=== PATIENT | male | born 1935 | race Caucasian/White ===

== ENCOUNTER → 2021-09-18 | Outpatient (CLI) | payer MEDICARE ==
--- NOTE | 2021-09-18 16:22 | P.SLEEP ---
History of Present Illness H&P Date: 09/18/21 Chief Complaint: Poor sleep quality This is a very pleasant 85-year-old male patient was referred to me for difficulties with his sleep quality. The patient has been having this issue for the past several years. He has an extensive number of medical problems and comorbidities. He has degenerative arthritis which has affected his mobility and movement. At the same time, the patient is known to have CAD, diabetes mellitus, hypertension and hyperlipidemia. He has history of prostate cancer treated with radiation therapy and the patient has symptoms of BPH for now. The patient reports that he tries to go to bed at around 9:30 PM and he wakes up around 4 AM in the morning. His sleep is fragmented. He cannot get himself comfortable as the patient has pain/arthritic pain. The patient has to get up at least 3-4 times in the middle of the night to urinate. He cuts down his fluid intake at around 6 PM. He takes a dose of Lasix in the morning. No nighttime diuretic use. He has occasional soft snoring. He prefers to sleep on his side. He was having dry mouth in the morning which has improved. Denies waking up choking or gasping for air. He prefers to sleep with his head of the bed elevated at around 20-30. No sleepwalking. No sleep talking. No no cturnal chest pain. No nocturnal heartburn. The patient is taking a PPI. No anxiety. No depression. During the day, the patient does not take any long naps. He chest to get himself quite busy. No episodes of falling asleep while driving his car. No previous personal or family history of obstructive sleep apnea. Review of Systems Constitutional: Reports fatigue, Reports weakness, Reports weight gain Eyes: denies as per HPI, denies blurred vision, denies bulging eye, denies decreased vision, denies diplopia, denies discharge, denies dry eye, denies irritation, denies itching, denies pain, denies photophobia, denies loss of peripheral vision, denies loss of vision, denies tunnel vision/blind spots Ears: deny: decreased hearing, ear discharge, earache, tinnitus Ears, nose, mouth and throat: Reports as per HPI Breasts: absent: as per HPI, gynecomastia Cardiovascular: Reports decreased exercise tolerance, Reports dyspnea on exertion Respiratory: Reports snoring Gastrointestinal: Reports as per HPI Genitourinary: Reports as per HPI Musculoskeletal: Reports gait dysfunction, Reports hot joints, Reports limitation of motion, Reports muscle weakness Musculoskeletal: bilateral: ankle swelling, absent: ankle pain, ankle stiffness Integumentary: Reports as per HPI Neurological: Reports as per HPI, Reports weakness Psychiatric: Reports as per HPI Endocrine: Reports as per HPI, Reports fatigue Hematologic/Lymphatic: Reports as per HPI Allergic/Immunologic: Reports as per HPI Past Medical History Past Medical History: Coronary Artery Disease (CAD), Cancer (Prostate cancer, osteoarthritis), Diabetes Mellitus, Hyperlipidemia, Hypertension, Osteoarthritis (OA) Past Surgical History: Heart Catheterization With Stent, Prostate Surgery (Seed implantation for prostate cancer) Past Psychological History: No Psychological Hx Reported Smoking Status: Former smoker Past Alcohol Use History: None Reported Past Drug Use History: None Reported Medications and Allergies Home Medications and Allergies Comment(s): Coreg 25 mg twice a day, the Nipride 2 mg 3 times a day, lisinopril 40 mg by mouth daily, metformin 1000 mg twice a day, omeprazole 20 mg by mouth daily, Lasix 20 mg by mouth daily, lovastatin 10 mg by mouth daily, Flomax 0.4 mg by mouth daily, aspirin 81 mg by mouth daily, potassium supplements, vitamin D3, multivitamins, and your 30 mg by mouth daily, Plavix 75 mg by mouth daily. Physical Exam Vitals: BP is 173/71, pulse is 73, respirations 21, temperature 96.4, BMI 34.4, [place] score is at 3, saturations 94% on room air oxygen. The patient appeared well nourished and normally developed. Vital signs as documented. Mallampati class III Head exam is unremarkable. No scleral icterus or corneal arcus noted. Neck is without jugular venous distension, thyromegaly, or carotid bruits. Carotid upstrokes are brisk bilaterally. Lungs are clear to auscultation and percussion. Lung sounds are diminished specially in the mid and lower lung ovalles and the patient some thoracic kyphosis. Cardiac exam reveals the PMI to be normally sized and situated. Rhythm is regular. First and second heart sounds normal. No murmurs, rubs or gallops. Abdominal exam reveals normal bowel sounds, no masses, no organomegaly and no aortic enlargement. Extremities are nonedematous and both femoral and pedal pulses are normal. Degenerative arthritic changes in his hands and his knees bilaterally of the skin revealed no evidence of significant rashes, suspicious appearing nevi or other concerning lesions.Neurologically, the patient is awake and alert and the patient does not have any focal neurological deficit. Cranial nerves are essentially intact. Assessment and Plan Plan: Impaired sleep quality without major hypersomnia and sleepiness. The patient has sleep fragmentation related to his comorbidities most significant of which is degenerative arthritis and nocturia related to prostate cancer and previous prostate surgery and symptoms of prostatism. At the same time, there may be a component of CHF as the patient is reporting some orthopnea. I highly doubt the possibility of an underlying sleep breathing disorder. I think this patient's impaired sleep quality is related to his large number of comorbid conditions as stated. Coronary artery disease Hypertension Hyperlipidemia Prostate cancer, symptoms of prostatism Degenerative arthritis with chronic arthritic pain Diabetes mellitus type 2 Obesity Plan Had a lengthy discussion with the patient in presence of his regarding his sleep quality, and the comorbidities that he is going through affecting his sleep quality in general. I would suggest alternating Tylenol and nondistended further anti-inflammatory medications for him more effective pain control. He has been taking Aleve PM which has helped him with his ability to generate to maintain sleep and I think that's okay to continue as long as the patient is not expressing any side effects from the antihistamine. No delirium. No urinary retention. I do not see any immediate need to do a sleep study. We are going to work on these various factors and the patient will contact me back should there be any worsening in his sleep quality in general. Sleep Note - Sleep Note Sleep Note: Temperature: Pulse Rate: Respiratory Rate: Blood Pressure: SpO2: Height: Weight: BMI: Neck Circumference:
== END ==
LOC: SLEEP 15:18
PROVIDERS: ATTEND Internal Medicine Critical Care Medicine
DX: G47.10 Hypersomnia, unspecified (principal); R35.1 Nocturia; M19.90 Unspecified osteoarthritis, unspecified site; C61 Malignant neoplasm of prostate; I25.10 Atherosclerotic heart disease of native coronary artery without angina pectoris; I10 Essential (primary) hypertension; E78.5 Hyperlipidemia, unspecified; N40.0 Benign prostatic hyperplasia without lower urinary tract symptoms; E11.9 Type 2 diabetes mellitus without complications; E66.9 Obesity, unspecified; Z87.891 Personal history of nicotine dependence; Z68.34 Body mass index [BMI] 34.0-34.9, adult; Z79.84 Long term (current) use of oral hypoglycemic drugs; Z79.82 Long term (current) use of aspirin
CPT/HCPCS: 99211

== ENCOUNTER 2023-01-23 19:01 | Emergency (ER) | payer MEDICARE ==
--- NOTE | 2023-01-23 20:32 | ED ---
Fall HPI - General Chief Complaint: Fall Stated Complaint: FALL Time Seen by Provider: 01/23/23 19:26 Source: patient, family, EMS Mode of arrival: EMS - History of Present Illness Initial Comments: 87-year-old male presenting with chief complaint of fall. Patient was walking to the car with his just after dinner, his was walking a few steps out of him when she heard him fall hitting his face on the pavement. She states they did not speak immediately after the fall but there did not seem to be a clear loss of consciousness. No blood thinners. He was placed in a c-collar by EMS. Patient did have one beer at dinner. No nausea, vomiting, dizziness, vision or hearing changes, numbness, tingling, weakness. Patient has an abrasion to the right forehead and swelling and abrasion to the lower inner lip. - Related Data Allergies Allergy/AdvReac Type Severity Reaction Status Date / Time No Known Allergies Allergy Verified 01/23/23 19:19 Review of Systems ROS Statement: Those systems with pertinent positive or pertinent negative responses have been documented in the HPI. ROS Other: All systems not noted in ROS Statement are negative. Past Medical History Past Medical History: Coronary Artery Disease (CAD), Cancer, Diabetes Mellitus, Hyperlipidemia, Hypertension, Osteoarthritis (OA) Past Surgical History: Heart Catheterization With Stent, Prostate Surgery Past Psychological History: No Psychological Hx Reported Smoking Status: Former smoker Past Alcohol Use History: None Reported Past Drug Use History: None Reported General Exam Limitations: no limitations General appearance: alert, in no apparent distress Head exam: Present: atraumatic, normocephalic, normal inspection Eye exam: Present: normal appearance, PERRL, EOMI. Absent: scleral icterus, co njunctival injection, periorbital swelling Neck exam: Present: normal inspection Respiratory exam: Present: normal lung sounds bilaterally. Absent: respiratory distress, wheezes, rales, rhonchi, stridor Cardiovascular Exam: Present: regular rate, normal rhythm, normal heart sounds. Absent: systolic murmur, diastolic murmur, rubs, gallop, clicks Neurological exam: Present: alert, oriented X3 Expanded Patient oriented to: Present: person, place, time Speech: Present: fluid speech Cranial nerves: EOM's Intact: Normal Motor strength exam: RUE: 5, LUE: 5, RLE: 5, LLE: 5 Eye Response: (4) open spontaneously Motor Response: (6) obeys commands Verbal Response: (5) oriented Elana Total: 15 Psychiatric exam: Present: normal affect, normal mood Skin exam: Present: warm, dry, normal color, abrasion (Forehead and lip). Absent: rash Course Vital Signs 01/23/23 19:11 Temperature 98.1 F Pulse Rate 73 Respiratory 20 Rate Blood Pressure 180/79 O2 Sat by Pulse 93 L Oximetry Medical Decision Making - Medical Decision Making Was pt. sent in by a medical professional or institution (, [facility], [facility], urgent care, hospital, or fci...) When possible be specific @ -No Did you speak to anyone other than the patient for history (EMS, parent, family, police, friend...)? What history was obtained from this source @ -No Did you review nursing and triage notes (agree or disagree)? Why? @ -I reviewed and agree with nursing and triage notes Were old charts reviewed (outside hosp., previous admission, EMS record, old EKG, old radiological studies, urgent care reports/EKG's, fci records)? Report findings @ -No old charts were reviewed Differential Diagnosis (chest pain, altered mental status, abdominal pain women, abdominal pain men, vaginal bleeding, weakness, fever, dyspnea, syncope, headache, dizziness, GI bleed, back pain, seizure, CVA, palpatations, mental health, musculoskeletal)? @ -Differential includes intracranial hemorrhage, cervical spine fracture, concussion, this is not an all inclusive last EKG interpreted by me (3pts min.). @ -As above X-rays interpreted by me (1pt min.). @ -None done CT interpreted by me (1pt min.). @ -There is no acute fracture or dislocation evident in the cervical spine. No acute intracranial hemorrhage, mass effect, or midline shift is seen. U/S interpreted by me (1pt. min.). @ -None done What testing was considered but not performed or refused? (CT, X-rays, U/S, labs)? Why? @ -None What meds were considered but not given or refused? Why? @ -None Did you discuss the management of the patient with other professionals (professionals i.e. , [facility], [facility], lab, RT, psych nurse, social media marketing analyst, funeral prearrangement counselor, teacher, civilian jail officer, bilingual patient support caseworker)? Give summary @ -No Was smoking cessation discussed for >3mins.? @ -No Was critical care preformed (if so, how long)? @ -No Were there social determinants of health that impacted care today? How? (Homelessness, low income, unemployed, alcoholism, drug addiction, transportation, low edu. Level, literacy, decrease access to med. care, snf, rehab)? @ -No Was there de-escalation of care discussed even if they declined (Discuss DNR or withdrawal of care, Hospice)? DNR status @ -No What co-morbidities impacted this encounter? (DM, HTN, Smoking, COPD, CAD, Cancer, CVA, ARF, Chemo, Hep., AIDS, mental health diagnosis, sleep apnea, morbid obesity)? @ -None Was patient admitted / discharged? Hospital course, mention meds given and route, prescriptions, significant lab abnormalities, going to OR and other pertinent info. @ -87-year-old male presenting with chief complaint of head injury after fall from standing today. No loss of consciousness or blood thinners. Physical exam is conducted, no focal neurological deficits. GCS 15. Patient was placed in a c-collar by EMS. Negative CT of the brain and cervical spine. Patient and are educated on today's findings and management at home. Educated on wound care for the abrasions to the face and lip. Follow-up with PCP. Report back to ER with any new or worsening symptoms. Discussed return parameters and answered all questions. Patient conveyed verbal understanding and agreed to the plan. I discussed this case in detail with my attending Dr. Overton Undiagnosed new problem with uncertain prognosis? @ -No Drug Therapy requiring intensive monitoring for toxicity (Heparin, Nitro, Insulin, Cardizem)? @ -No Were any procedures done? @ -No Diagnosis/symptom? @ -head injury Acute, or Chronic, or Acute on Chronic? @ -Acute Uncomplicated (without systemic symptoms) or Complicated (systemic symptoms)? @ -Uncomplicated Side effects of treatment? @ -No Exacerbation, Progression, or Severe Exacerbation? @ -No Poses a threat to life or bodily function? How? (Chest pain, [place], [place], pneumonia, PE, COPD, DKA, ARF, appy, cholecystitis, CVA, Diverticulitis, Homicidal, Suicidal, threat to staff... and all critical care pts) @ -No Disposition Clinical Impression: Head injury Disposition: HOME SELF-CARE Condition: Good Instructions (If sedation given, give patient instructions): Head Injury (ED) Additional Instructions: Follow-up with PCP. Report back to ER with any new or worsening symptoms. Keep the wound clean and covered. Is patient prescribed a controlled substance at d/c from ED?: No Referrals: Haris Marroquin MD [Primary Care Provider] - 1-2 days Time of Disposition: 21:07
--- NOTE | 2023-01-23 20:46 | CT ---
EXAMINATION TYPE: CT brain cspine wo con DATE OF EXAM: 01/23/2023 COMPARISON: NONE HISTORY: Fall, trauma to mouth and nose. CT DLP: 1513.1 mGycm. Automated Exposure Control for Dose Reduction was Utilized. TECHNIQUE: CT scan of the head and cervical spine are performed without contrast. FINDINGS: There is no acute intracranial hemorrhage, mass effect, or midline shift identified. The v entricles and sulci are within normal limits in size. The globes are intact. The paranasal sinuses, m iddle ear cavities, and mastoid sinus air cells are clear. Cervical spine is visualized in its entirety from C1 through upper thoracic levels and demonstrates s atisfactory alignment without evidence of acute fracture or dislocation. Moderately advanced cervical spondylosis changes seen at all levels. Prevertebral soft tissue appears within normal limits. The C 1-C2 articulation is unremarkable. IMPRESSION: 1. There is no acute fracture or dislocation evident in the cervical spine. 2. No acute intracranial hemorrhage, mass effect, or midline shift is seen.
[2023-01-23] MEDS ORDERED: BACITRACIN OINT 1 EACH PACKET TOPICAL ONE (21:07)
[2023-01-23 21:51] VITALS: BP 138/64; PULSE 71; RESP 18; TEMP 97.9
== END 2023-01-23 21:52 | disposition home or self-care (01) ==
LOC: EC 19:01
DX: S00.81XA Abrasion of other part of head, initial encounter (principal); S00.511A Abrasion of lip, initial encounter; E11.9 Type 2 diabetes mellitus without complications; I25.10 Atherosclerotic heart disease of native coronary artery without angina pectoris; I10 Essential (primary) hypertension; Z87.891 Personal history of nicotine dependence; Z95.5 Presence of coronary angioplasty implant and graft; W18.30XA Fall on same level, unspecified, initial encounter; Y93.01 Activity, walking, marching and hiking
CPT/HCPCS: 70450; 72125; 99284

== ENCOUNTER 2023-07-01 12:11 | Inpatient (IN) | payer MEDICARE ==
--- NOTE | 2023-07-01 12:36 | ED ---
General Adult HPI - General Chief complaint: Weakness Stated complaint: Dehydration,Weakness,Failure to thrive Time Seen by Provider: 07/01/23 12:14 Source: patient, EMS Mode of arrival: EMS Limitations: no limitations - History of Present Illness Initial comments: Dictation was produced using [employer] dictation software. please excuse any grammatical, word or spelling errors. Chief Complaint: 87-year-old male presents to the emergency department for w orsening debility History of Present Illness: Patient is 87-year-old male. History present illness obtained from . He lives at home with his . Since February of last year he started to have worsening function. He was admitted at [facility] last year for bleeding and diverticulitis. Since then he has been slowly becoming worse. Today he was so weak that he was not able to support his own weight. He contacted primary care doctor and states that he should come to the hospital be admitted. does not feel safe with him at home. 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 Episode was witnessed by . States that he did not hurt himself. Patient denies any pain complaints. Denies any fever or constitutional symptoms. Denies any black or bloody stools. The ROS documented in this emergency department record has been reviewed and confirmed by me. Those systems with pertinent positive or negative responses have been documented in the HPI. All other systems are other negative and/or noncontributory. - Related Data Home Medications Medication Instructions Recorded Confirmed Ascorbic Acid [Vitamin C] 500 mg PO DAILY@1200 07/01/23 07/01/23 Aspirin 81 mg PO DAILY 07/01/23 07/01/23 Cholecalciferol (Vitamin D3) 75 mcg PO DAILY@1200 07/01/23 07/01/23 [Vitamin D3 (3000 Iu)] Furosemide [Lasix] 20 mg PO DAILY 07/01/23 07/01/23 Glimepiride [Amaryl] 2 mg PO AC-BRKFST 07/01/23 07/01/23 Levothyroxine Sodium [Synthroid] 25 mcg PO DAILY 07/01/23 07/01/23 Nitroglycerin Sl Tabs [Nitrostat] 0.4 mg SUBLINGUAL Q5M PRN 07/01/23 07/01/23 Rosuvastatin [Crestor] 10 mg PO HS 07/01/23 07/01/23 Tamsulosin HCl [Flomax] 0.4 mg PO DAILY@1200 07/01/23 07/01/23 amLODIPine [Norvasc] 5 mg PO DAILY 07/01/23 07/01/23 carvediloL [Coreg] 12.5 mg PO BID 07/01/23 07/01/23 lisinopriL [Zestril] 20 mg PO HS 07/01/23 07/01/23 metFORMIN HCL 500 mg PO BID 07/01/23 07/01/23 Allergies Allergy/AdvReac Type Severity Reaction Status Date / Time No Known Allergies Allergy Verified 07/01/23 13:42 Review of Systems ROS Statement: Those systems with pertinent positive or pertinent negative responses have been documented in the HPI. ROS Other: All systems not noted in ROS Statement are negative. Past Medical History Past Medical History: Coronary Artery Disease (CAD), Cancer, Diabetes Mellitus, Hyperlipidemia, Hypertension, Osteoarthritis (OA) Past Surgical History: Heart Catheterization With Stent, Prostate Surgery Past Psychological History: No Psychological Hx Reported Smoking Status: Former smoker Past Alcohol Use History: None Reported Past Drug Use History: None Reported General Exam - General Exam Comments Initial Comments: PHYSICAL EXAM: General Impression: Alert and oriented x3, not in acute distress HEENT: Normocephalic atraumatic, extra-ocular movements intact, pupils equal and reactive to light bilaterally, mucous membranes moist. Cardiovascular: Heart regular rate and rhythm Chest: Able to complete full sentences, no retractions, no tachypnea Abdomen: abdomen soft, non-tender, non-distended, no organomegaly Musculoskeletal: Pulses present and equal in all extremities, no peripheral edema Motor: no focal deficits noted Neurological: CN II-XII grossly intact, no focal motor or sensory deficits noted Skin: Intact with no visualized rashes Psych: Normal affect and mood Limitations: no limitations Course Vital Signs 07/01/23 07/01/23 12:16 14:06 Temperature 97.4 F L Pulse Rate 65 68 Respiratory 18 20 Rate Blood Pressure 167/77 170/84 O2 Sat by Pulse 97 95 Oximetry EKG Findings - EKG Comments: EKG Findings:: My EKG interpretation: Ventricular rate 62, sinus rhythm, OK interval 192, QRS 103, QTc 404.. No OK prolongation, no QTC prolongation, no ST or T-wave changes noted. Overall, this EKG is unremarkable Medical Decision Making - Medical Decision Making Was pt. sent in by a medical professional or institution (DANNY Mendez, [employer], urgent care, hospital, or detention...) When possible be specific @ -No Did you speak to anyone other than the patient for history (EMS, parent, family, police, friend...)? What history was obtained from this source @ -See above Did you review nursing and triage notes (agree or disagree)? Why? @ -I reviewed and agree with nursing and triage notes Were old charts reviewed (outside hosp., previous admission, EMS record, old EKG, old radiological studies, urgent care reports/EKG's, detention records)? Report findings @ -No old charts were reviewed Differential Diagnosis (chest pain, altered mental status, abdominal pain women, abdominal pain men, vaginal bleeding, musculoskeletal, weakness, fever, dyspnea, syncope, headache, dizziness, GI bleed, back pain, seizure, CVA, palpatations, mental health)? @ -Differential Weakness: Hypoglycemia, shock, sepsis, hyponatremia, anemia, infection, FL, ETOH, adverse medicine reaction, overdose, stroke, this is not meant to be an all-inclusive list. EKG interpreted by me (3pts min.). @ -None done X-rays interpreted by me (1pt min.). @ -None done CT interpreted by me (1pt min.). @ -None done U/S interpreted by me (1pt. min.). @ -None done What testing was considered but not performed or refused? (CT, X-rays, U/S, labs)? Why? @ -None What meds were considered but not given or refused? Why? @ -None Did you discuss the management of the patient with other professionals (professionals i.e. DANNY Mendez, [employer], lab, RT, psych nurse, medical social worker, marine biologist, teacher, special technical operations officer, child welfare caseworker)? Give summary @ -Case discussed with hospitalist for admission Was smoking cessation discussed for >3mins.? @ -No Was critical care preformed (if so, how long)? @ -No Were there social determinants of health that impacted care today? How? (Homelessness, low income, unemployed, alcoholism, drug addiction, transport ation, low edu. Level, literacy, decrease access to med. care, prison, rehab)? @ -No Was there de-escalation of care discussed even if they declined (Discuss DNR or withdrawal of care, Hospice)? DNR status @ -No What co-morbidities impacted this encounter? (DM, HTN, Smoking, COPD, CAD, Cancer, CVA, ARF, Chemo, Hep., AIDS, mental health diagnosis, sleep apnea, morbid obesity)? @ -None Was patient admitted / discharged? Hospital course, mention meds given and route, prescriptions, significant lab abnormalities, going to OR and other pertinent info. @ -87-year-old male brought to the emergency department per instruction by primary care doctor for admission for worsening weakness. Vital signs upon arrival are within acceptable limits. Physical examination is benign. Patient is in no acute distress. He has no focal findings on his physical exam. Laboratory evaluation is unremarkable. Patient be admitted for grave disability. Undiagnosed new problem with uncertain prognosis? @ -No Drug Therapy requiring intensive monitoring for toxicity (Heparin, Nitro, Insulin, Cardizem)? @ -No Were any procedures done? @ -No Diagnosis/symptom? Acute, or Chronic, or Acute on Chronic? Uncomplicated (without systemic symptoms) or Complicated (systemic symptoms)? @ -Gravely disabled Side effects of treatment? @ -No Exacerbation, Progression, or Severe Exacerbation? @ -No Poses a threat to life or bodily function? How? (Chest pain, USA, FL, pneumonia, PE, COPD, DKA, ARF, appy, cholecystitis, CVA, Diverticulitis, Homicidal, Suicidal, threat to staff... and all critical care pts) @ -No - Lab Data Result diagrams: 07/01/23 12:55 07/01/23 12:55 Lab Results 07/01/23 07/01/23 Range/Units 12:55 12:55 WBC 6.6 (3.8-10.6) k/uL RBC 4.14 L (4.30-5.90) m/uL Hgb 11.7 L (13.0-17.5) gm/dL Hct 36.3 L (39.0-53.0) % MCV 87.7 (80.0-100.0) fL MCH 28.3 (25.0-35.0) pg MCHC 32.2 (31.0-37.0) g/dL RDW 18.4 H (11.5-15.5) % Plt Count 190 (150-450) k/uL MPV 8.4 Neutrophils % 69 % Lymphocytes % 19 % Monocytes % 7 % Eosinophils % 3 % Basophils % 1 % Neutrophils # 4.5 (1.3-7.7) k/uL Lymphocytes # 1.2 (1.0-4.8) k/uL Monocytes # 0.4 (0-1.0) k/uL Eosinophils # 0.2 (0-0.7) k/uL Basophils # 0.1 (0-0.2) k/uL Anisocytosis Slight Sodium 136 L (137-145) mmol/L Potassium 3.7 (3.5-5.1) mmol/L Chloride 106 (98-107) mmol/L Carbon Dioxide 23 (22-30) mmol/L Anion Gap 7 mmol/L BUN 19 (9-20) mg/dL Creatinine 0.68 (0.66-1.25) mg/dL Est GFR (CKD-EPI)AfAm >90 (>60 ml/min/1.73 sqM) Est GFR (CKD-EPI)NonAf 87 (>60 ml/min/1.73 sqM) Glucose 88 (74-99) mg/dL Calcium 8.3 L (8.4-10.2) mg/dL Magnesium 1.7 (1.6-2.3) mg/dL Disposition Clinical Impression: Gravely disabled Disposition: ADMITTED IP TO THIS HOSP Condition: Fair Referrals: Haris Marroquin MD [Primary Care Provider] - 1-2 days Decision Time: 15:11
[2023-07-01 13:02] LABS: Anisocytosis Slight; Basophils # (A) 0.1 k/uL (0-0.2); Basophils % (A) 1 %; Eosinophils # (A) 0.2 k/uL (0-0.7); Eosinophils % (A) 3 %; HCT 36.3 % (39.0-53.0); HGB 11.7 gm/dL (13.0-17.5); Lymphocytes # (A) 1.2 k/uL (1.0-4.8); Lymphocytes % (A) 19 %; MCH 28.3 pg (25.0-35.0); MCHC 32.2 g/dL (31.0-37.0); MCV 87.7 fL (80.0-100.0); Mean Platelet Volume 8.4; Monocytes # (A) 0.4 k/uL (0-1.0); Monocytes % (A) 7 %; Neutrophils # (A) 4.5 k/uL (1.3-7.7); Neutrophils % (A) 69 %; Platelet Count 190 k/uL (150-450); RBC 4.14 m/uL (4.30-5.90); RDW 18.4 % (11.5-15.5); WBC 6.6 k/uL (3.8-10.6)
[2023-07-01 13:13] LABS: African American GFR (CKD) >90 (>60 ml/min/1.73 sqM); Anion Gap 7 mmol/L; Blood Urea Nitrogen 19 mg/dL (9-20); Calcium 8.3 mg/dL (8.4-10.2); Carbon Dioxide 23 mmol/L (22-30); Chloride 106 mmol/L (98-107); Glucose 88 mg/dL (74-99); Magnesium 1.7 mg/dL (1.6-2.3); Non-African American GFR(CKD) 87 (>60 ml/min/1.73 sqM); Potassium 3.7 mmol/L (3.5-5.1); Sodium 136 mmol/L (137-145)
[2023-07-01] MEDS ORDERED: NALOXONE 0.4 MG/ML 1 ML VIAL IV PRN (15:02)
[2023-07-01] MEDS ORDERED: NITROGLYCERIN SL TABS 0.4 MG TAB SUBLINGUAL PRN (15:06)
[2023-07-01] MEDS: carvediloL 12.5 MG TAB PO SCH (17:45)
[2023-07-01] MEDS: metFORMIN 500 MG TAB PO SCH (17:45)
[2023-07-01] MEDS ORDERED: DEXTROSE 50% SYRINGE 50 ML IVP PRN ×2 (18:14)
[2023-07-01] MEDS: ACETAMINOPHEN TAB 325 MG TAB PO PRN (18:27)
[2023-07-01 20:59] LABS: Glucose,Whole Blood 107 mg/dL (70-110)
[2023-07-01] MEDS: INSULIN ASPART (NovoLOG) 100 UNIT/ML VIAL SQ SCH (21:10)
[2023-07-01] MEDS: ATORVASTATIN 20 MG TAB PO SCH (21:18)
[2023-07-01] MEDS: lisinopriL 20 MG TAB PO SCH (21:18)
[2023-07-02 07:34] LABS: Glucose,Whole Blood 112 mg/dL (70-110)
[2023-07-02] MEDS: GLIMEPIRIDE 2 MG TAB PO SCH (09:17)
[2023-07-02] MEDS: PANTOPRAZOLE 40 MG/10 ML VIAL IVP SCH (09:18)
[2023-07-02] MEDS: CHOLECALCIFEROL 25 MCG (1000 IU) TABLET PO SCH (09:18)
[2023-07-02] MEDS: ASPIRIN 81 MG PO SCH (09:18)
[2023-07-02] MEDS: MAGNESIUM SULFATE-D5W PMX 1 GM in DEXTROSE/WATER 1 100ML.BAG IVPB ONE ×2 (09:18→12:22)
[2023-07-02] MEDS: ASCORBIC ACID 500 MG TAB PO SCH (09:18)
[2023-07-02] MEDS: LEVOTHYROXINE 25 MCG TAB PO SCH (09:18)
[2023-07-02] MEDS: amLODIPine 5 MG TAB PO SCH (09:18)
[2023-07-02 11:28] LABS: Glucose,Whole Blood 366 mg/dL (70-110)
[2023-07-02] MEDS: TAMSULOSIN 0.4 MG CAP.ER.24H PO SCH (12:04)
[2023-07-02] MEDS: POTASSIUM CHLORIDE ER 20 MEQ TAB.ER PO SCH (12:04)
[2023-07-02] MEDS: FUROSEMIDE 20 MG TAB PO SCH (12:05)
--- NOTE | 2023-07-02 12:08 | P.HPIM ---
History of Present Illness H&P Date: 07/02/23 Chief Complaint: increased weakness, debility This is a pleasant 87-year-old gentleman with past medical history significant for CAD, diabetes mellitus, hypertension, hyperlipidemia, osteoarthritis, permanent pacemaker, prostate surgery, former nicotine dependence, gait dysf unction, uses a walker, and multiple other medical issues presented to the ER with complaints of progressive weakness. at bedside states that since this past February patient started having worsening function, difficulty getting out of bed and supporting his own weight. She also states patient was admitted to [facility] last year for bleeding and diverticulitis. Apparently yesterday patient had an episode of going to the bathroom began to feel extremely weak and attempted to lower himself to the ground-witnessed by his . Denies syncope, denies head trauma, denies trauma. Denies rectal bleeding/dark or black stools, denies pain. Denies recent illness. Denies nausea vomiting or diarrhea. Denies abdominal pain. Blood sugars controlled. Denies weight loss. denies lightheadedness dizziness or focal deficits. reports patient stopped taking his Lasix a couple days ago and she notices levothyroxine medication was missing off the list he gave. Denies chills, coldness or fatigue. ProBNP 571 .denies chest pain palpitations or shortness of breath. Denies cough or c ongestion. currently requiring 2 L nasal cannula to maintain O2 sats in the 90s. Procalcitonin 0.05 hypertensive. Magnesium 1.7, supplemented. Review of Systems ROS Statement: Those systems with pertinent positive or pertinent negative responses have been documented in the HPI. ROS Other: All systems not noted in ROS Statement are negative. Past Medical History Past Medical History: Coronary Artery Disease (CAD), Cancer, Diabetes Mellitus, Hyperlipidemia, Hypertension, Osteoarthritis (OA) History of Any Multi-Drug Resistant Organisms: None Reported Past Surgical History: Heart Catheterization With Stent, Hernia Repair, Pacemaker, Prostate Surgery Past Anesthesia/Blood Transfusion Reactions: No Reported Reaction Date of Last Stent Placement:: 2021 Type of Cardiac Device: Loop Device Placement Date:: 02/2024 Past Psychological History: No Psychological Hx Reported Smoking Status: Former smoker Past Alcohol Use History: None Reported Past Drug Use History: None Reported Medications and Allergies Home Medications Medication Instructions Recorded Confirmed Type Ascorbic Acid [Vitamin C] 500 mg PO DAILY@1200 07/01/23 07/01/23 History Aspirin 81 mg PO DAILY 07/01/23 07/01/23 History Cholecalciferol (Vitamin D3) 75 mcg PO DAILY@1200 07/01/23 07/01/23 History [Vitamin D3 (3000 Iu)] Furosemide [Lasix] 20 mg PO DAILY 07/01/23 07/01/23 History Glimepiride [Amaryl] 2 mg PO AC-BRKFST 07/01/23 07/01/23 History Levothyroxine Sodium [Synthroid] 25 mcg PO DAILY 07/01/23 07/01/23 History Nitroglycerin Sl Tabs [Nitrostat] 0.4 mg SUBLINGUAL Q5M PRN 07/01/23 07/01/23 History Rosuvastatin [Crestor] 10 mg PO HS 07/01/23 07/01/23 History Tamsulosin HCl [Flomax] 0.4 mg PO DAILY@1200 07/01/23 07/01/23 History amLODIPine [Norvasc] 5 mg PO DAILY 07/01/23 07/01/23 History carvediloL [Coreg] 12.5 mg PO BID 07/01/23 07/01/23 History lisinopriL [Zestril] 20 mg PO HS 07/01/23 07/01/23 History metFORMIN HCL 500 mg PO BID 07/01/23 07/01/23 History Allergies Allergy/AdvReac Type Severity Reaction Status Date / Time No Known Allergies Allergy Verified 07/01/23 13:42 Physical Exam Vitals: Vital Signs Temp Pulse Pulse Resp BP BP Pulse Ox 07/02/23 07:39 98.1 F 62 18 171/87 97 07/02/23 06:35 98.7 F 60 15 159/79 07/02/23 04:54 97 07/02/23 04:47 98.5 F 65 24 157/93 91 L 07/02/23 02:00 61 18 146/73 96 07/02/23 00:00 63 18 150/79 95 07/01/23 21:36 62 20 156/84 93 L 07/01/23 21:13 68 22 147/79 96 07/01/23 17:43 98.1 F 76 20 171/79 93 L 07/01/23 14:06 68 20 170/84 95 07/01/23 12:16 97.4 F L 65 18 167/77 97 Intake and Output 07/01/23 07/02/23 07/02/23 22:59 06:59 14:59 Output Total 275 Balance -275 Output: Urine 275 Other: # Voids 2 Weight 87.997 kg PHYSICAL EXAM: VITAL SIGNS: [As above] GENERAL: Pleasant, alert and oriented x 3, sitting up in bed, no conversational dyspnea, no acute distress. HEENT: Normocephalic, atraumatic, conjunctivae normal. eyes normal. MMM. NECK: Supple, no JVD. No thyroid enlargement. No LNs CARDIOVASCULAR: S1, S2 regular. No murmur RESPIRATION: Unlabored, equal air entry breath sounds diminished in the bases. No rhonchi or crackles. No bronchial breathing. ABDOMEN: Soft, nontender . No guarding. no masses palpable. No ascites, No hepatosplenomegaly.Bowel sounds heard. LEGS: No edema. no swelling PSYCHIATRY: Alert and oriented X3, mood and affect normal. NERVOUS SYSTEM: Cranial N 2-12 grossly normal. Moves all 4 limbs. Motor strength strong and equal with exception of left lower extremity 4-4.5 out of 5. No focal deficits. Strength and sensation grossly intact.. Skin: Warm and dry, no rash Results CBC & Chem 7: 07/01/23 12:55 07/01/23 12:55 Labs: Abnormal Lab Results - Last 24 Hours (Table) 07/01/23 07/01/23 07/01/23 Range/Units 12:55 12:55 12:55 RBC 4.14 L (4.30-5.90) m/uL Hgb 11.7 L (13.0-17.5) gm/dL Hct 36.3 L (39.0-53.0) % RDW 18.4 H (11.5-15.5) % Sodium 136 L (137-145) mmol/L POC Glucose (mg/dL) (70-110) mg/dL Calcium 8.3 L (8.4-10.2) mg/dL NT-Pro-B Natriuret Pep 571 H (0-450) pg/mL 07/02/23 Range/Units 07:33 RBC (4.30-5.90) m/uL Hgb (13.0-17.5) gm/dL Hct (39.0-53.0) % RDW (11.5-15.5) % Sodium (137-145) mmol/L POC Glucose (mg/dL) 112 H (70-110) mg/dL Calcium (8.4-10.2) mg/dL NT-Pro-B Natriuret Pep (0-450) pg/mL Thrombosis Risk Factor Assmnt - Choose All That Apply Any of the Below Risk Factors Present?: Yes Each Factor Represents 1 point: Obesity (BMI >25) Other Risk Factors: Yes Each Risk Factor Represents 2 Points: Patient confined to bed Each Risk Factor Represents 3 Points: Age 75 years or older Thrombosis Risk Factor Assessment Total Risk Factor Score: 6 Thrombosis Risk Factor Assessment Level: High Risk Assessment and Plan Assessment: Near syncope, reported increasing weakness over the last 3-4 months, greatest noted in left lower extremity. Acute hypoxic respiratory failure, requiring 2 L nasal cannula. Hypertension Osteoarthritis Gait dysfunction, uses a walker Medical debility Chronic CHF, systolic dysfunction CAD PPM Diabetes mellitus, hemoglobin A1c pending History of prostate surgery Former nicotine dependence Hypokalemia Hypomagnesemia, supplemented Obesity, BMI 30 Plan: Continue on current medication resume ,monitoring and symptomatic tr eatment. Hypertensive, repeat blood pressure ordered. hypoxia, chest x-ray ordered. neurology consult initiated. TSH/free T4 ordered. Case management/PT/OT consulted. Potential subacute rehab at discharge.PPI ordered for GI prophylaxis. The impression and plan of care has been dictated as directed. : I performed a history and examination of this patient, discussed the same with the dictator. I agree with the dictator's note ,documented as a scribe. Any additional findings or plans will be noted.
[2023-07-02] MEDS: ACETAMINOPHEN IV (For NPO) 1,000 MG in EMPTY BAG 1 BAG IVPB STA (12:22)
--- NOTE | 2023-07-02 13:06 | XR ---
EXAMINATION TYPE: XR chest 1V portable DATE OF EXAM: 07/02/2023 12:35 PM CLINICAL INDICATION:Male, 87 years old with history of Hypoxia; COMPARISON: None TECHNIQUE: XR chest 1V portable Frontal view of the chest. FINDINGS: Lungs/Pleura: There is no evidence of pleural effusion, focal consolidation, or pneumothorax. Pulmonary vascularity: Unremarkable. Heart/mediastinum: Cardiomediastinal silhouette is unremarkable. Musculoskeletal: No acute osseous pathology. IMPRESSION: No acute cardiopulmonary disease/process.
[2023-07-02 16:15] LABS: Glucose,Whole Blood 47 mg/dL (70-110)
[2023-07-02 16:34] LABS: Glucose,Whole Blood 57 mg/dL (70-110)
[2023-07-02 16:47] LABS: Glucose,Whole Blood 68 mg/dL (70-110)
[2023-07-02 20:50] LABS: Glucose,Whole Blood 209 mg/dL (70-110)
[2023-07-03 06:02] LABS: Glucose,Whole Blood 118 mg/dL (70-110)
[2023-07-03] MEDS ORDERED: PANTOPRAZOLE 40 MG TABLET PO SCH (07:30)
[2023-07-03] MEDS: PANTOPRAZOLE 40 MG TABLET PO SCH (08:58)
[2023-07-03 10:00] LABS: African American GFR (CKD) >90 (>60 ml/min/1.73 sqM); Anion Gap 4 mmol/L; Blood Urea Nitrogen 17 mg/dL (9-20); Calcium 8.5 mg/dL (8.4-10.2); Carbon Dioxide 28 mmol/L (22-30); Chloride 103 mmol/L (98-107); Glucose 207 mg/dL (74-99); Non-African American GFR(CKD) 85 (>60 ml/min/1.73 sqM); Potassium 4.4 mmol/L (3.5-5.1); Sodium 135 mmol/L (137-145)
[2023-07-03 11:23] LABS: Glucose,Whole Blood 165 mg/dL (70-110)
--- NOTE | 2023-07-03 14:50 | P.PN ---
Subjective Progress Note Date: 07/03/23 H&P Date: 07/02/23 Chief Complaint: increased weakness, debility This is a pleasant 87-year-old gentleman with past medical history significant for CAD, diabetes mellitus, hypertension, hyperlipidemia, osteoarthritis, permanent pacemaker, prostate surgery, former nicotine dependence, gait dysfunction, uses a walker, and multiple other medical issues presented to the ER with complaints of progressive weakness. at bedside states that since this past February patient started having worsening function, difficulty getting out of bed and supporting his own weight. She also states patient was admitted to [facility] last year for bleeding and diverticulitis. Apparently yesterday patient had an episode of going to the bathroom began to feel ex tremely weak and attempted to lower himself to the ground-witnessed by his . Denies syncope, denies head trauma, denies trauma. Denies rectal bleeding/dark or black stools, denies pain. Denies recent illness. Denies nausea vomiting or diarrhea. Denies abdominal pain. Blood sugars controlled. Denies weight loss. denies lightheadedness dizziness or focal deficits. reports patient st opped taking his Lasix a couple days ago and she notices levothyroxine medication was missing off the list he gave. Denies chills, coldness or fatigue. ProBNP 571 .denies chest pain palpitations or shortness of breath. Denies cough or congestion. currently requiring 2 L nasal cannula to maintain O2 sats in the 90s. Procalcitonin 0.05 hypertensive. Magnesium 1.7, supplemented. 07/03/2023 reports he did not sleep well denies chest pain, palpitations or shortness of breath. Maintaining O2 sats in the 90s on room air. Chest x-ray reported nonacute. TSH 4.04, hemoglobin A1c 6.6. Blood sugars ranging from 1 teens up to low 200s. afebrile, procalcitonin normal, 0.05. Reports dizziness upon standing. Orthostatic vital signs ordered. Neurology consult in place, recommendations pending. Evaluated by PT, recommending subacute rehab at discharge. Objective - Vital Signs Vital signs: Vital Signs Temp 98.1 F 07/03/23 07:38 Pulse 72 07/03/23 08:00 Resp 15 07/03/23 08:00 BP 157/82 07/03/23 07:38 Pulse Ox 94 L 07/03/23 07:38 FiO2 Intake & Output 07/02/23 07/03/23 07/03/23 18:59 06:59 18:59 Other: Voiding Method Urinal Urinal Urinal # Voids 6 5 - Exam PHYSICAL EXAM: VITAL SIGNS: [As above] GENERAL:alert and oriented x 3,laying in bed, tired appearing, NAD HEENT: Normocephalic, atraumatic, conjunctivae normal. eyes normal. MMM. NECK: Supple, no JVD. CARDIOVASCULAR: S1, S2 regular. No murmur RESPIRATION: Unlabored, equal air entry, CTA, breath sounds diminished in the bases. ABDOMEN: Soft, nondistended, nontender . No guarding.+BS. LEGS: Trace edema, compression stockings on. NERVOUS SYSTEM: Cranial N 2-12 grossly normal. Moves all 4 limbs. No focal deficits. Strength and sensation grossly intact.. Skin: Warm and dry, no rash - Labs CBC & Chem 7: 07/01/23 12:55 07/03/23 08:59 Labs: Abnormal Lab Results - Last 24 Hours (Table) 07/02/23 07/02/23 07/02/23 Range/Units 09:22 16:13 16:28 Sodium (137-145) mmol/L Glucose (74-99) mg/dL POC Glucose (mg/dL) 47 L 57 L (70-110) mg/dL Hemoglobin A1c 6.6 H (<=6.0) % 07/02/23 07/02/23 07/03/23 Range/Units 16:42 20:49 06:00 Sodium (137-145) mmol/L Glucose (74-99) mg/dL POC Glucose (mg/dL) 68 L 209 H 118 H (70-110) mg/dL Hemoglobin A1c (<=6.0) % 07/03/23 07/03/23 Range/Units 08:59 11:21 Sodium 135 L (137-145) mmol/L Glucose 207 H (74-99) mg/dL POC Glucose (mg/dL) 165 H (70-110) mg/dL Hemoglobin A1c (<=6.0) % Assessment and Plan Assessment: Near syncope, reported increasing weakness over the last 3-4 months, greatest noted in left lower extremity. Acute hypoxic respiratory failure, resolved Hypertension Osteoarthritis Gait dysfunction, uses a walker Medical debility Chronic CHF, systolic dysfunction CAD PPM Diabetes mellitus, hemoglobin A1c pending History of prostate surgery Former nicotine dependence Hypokalemia Hypomagnesemia, supplemented Obesity, BMI 30 Plan: Continue on current medication resume ,monitoring and symptomatic treatmen t. Orthostatic blood pressures ordered. Neurology consult in place, recommendations pending. case management/PT/OT consulted. Discharge planning in progress for subacute rehab., Pending orthostatic vital signs, evaluation, recommendations and DC clearance as per neurology. The impression and plan of care has been dictated as directed. : I performed a history and examination of this patient, discussed the same with the dictator. I agree with the dictator's note ,documented as a scribe. Any additional findings or plans will be noted.
[2023-07-03 16:14] LABS: Basophils # (A) 0.07 X 10*3/uL (0.00-0.10); Eosinophils # (A) 0.23 X 10*3/uL (0.04-0.35); Eosinophils % (A) 3.2 %; HCT 38.2 % (39.6-50.0); Lymphocytes # (A) 1.21 X 10*3/uL (0.90-5.00); MCH 27.7 pg (27.0-32.0); MCHC 31.4 g/dL (32.0-37.0); MCV 88.2 FL (80.0-97.0); Mean Platelet Volume 11.2 FL (9.5-12.2); Monocytes # (A) 0.63 X 10*3/uL (0.20-1.00); Monocytes % (A) 8.8 %; NRBC Per 100 WBC 0 X 10*3/uL (0.00-0.01); Neutrophils # (A) 4.96 X 10*3/uL (1.80-7.70); Neutrophils % (A) 69.6 %; Platelet Count 194 X 10*3/uL (140-440); RBC 4.33 X 10*6/uL (4.40-5.60); RDW 18.6 % (11.5-14.5); WBC 7.13 X 10*3/uL (4.50-10.00)
[2023-07-03 16:47] LABS: Glucose,Whole Blood 150 mg/dL (70-110)
[2023-07-03] MEDS: INSULIN DETEMIR (LEVEMIR) 100 UNIT/ML SYR SQ SCH (17:45)
[2023-07-03 20:35] LABS: Glucose,Whole Blood 163 mg/dL (70-110)
[2023-07-04 01:21] LABS: Glucose,Whole Blood 59 mg/dL (70-110)
[2023-07-04 02:00] LABS: Glucose,Whole Blood 83 mg/dL (70-110)
[2023-07-04 03:17] LABS: Glucose,Whole Blood 135 mg/dL (70-110)
[2023-07-04 05:44] LABS: Glucose,Whole Blood 201 mg/dL (70-110)
[2023-07-04] MEDS ORDERED: INSULIN DETEMIR (LEVEMIR) 100 UNIT/ML SYR SQ SCH (07:00)
--- NOTE | 2023-07-04 09:06 | P.CNNES ---
History of Present Illness Consult date: 07/03/23 Requesting physician: Windy Yun Reason for Consult: near syncope,increased weakness, greatest noted LLE History of Present Illness: Patient is a 87-year-old right-handed male came to the hospital by ambulance 2 days ago on 07/01/2023 at 12:11 PM for generalized weakness. Patient's was present, who provided with a history as well. Patient has been having dizzy spells off and on for "couple years". Patient describes dizziness as lightheadedness, no vertigo. Also has been having generalized weakness. Stacy cason suffered from a fall in January 2023 when he fell face forward flat on the cement, did not try to break the fall. In late March 2023, he was leaving his office when he fell on the ground, "no calling for help, no protection" as per his . Patient states the dizzy spells are occurring about once or twice a month, lasting for about 1 hour. It is coming slightly more often. He does not know any trigger. Patient's denies any stroke symptoms like slurred speech, facial droop or focal weakness or problem with the vision. Since the last fall, patient's has noticed that he does not pick his left foot as well, and sometimes drags the left leg. She is noticing that sometimes he is looking for words in the last couple months. No slurring otherwise. Patient has a cousin, who is his rn intern as well, who implanted a loop recorder about 2 months ago and recently he had undergone loop recorder interrogation which did not reveal any arrhythmia. Patient did have episodes of dizziness after loop recorder was implanted. Patient is very poor historian, not very clear about his symptoms and very vague about reporting his symptoms therefore difficult to assess overall. On asking if he gets dizzy when bending down, states "sometimes". Does not become dizzy on rolling over in the bed. Patient's reports that when he gets out of bed fast, feels dizzy. In mid February 2023, patient had a ruptured diverticulitis and he stayed in [facility] for about 4 to 5 days. He required blood transfusion, subsequently has required iron infusion. He then went to rehab. As per EMS flowsheet, they were called for general global weakness, dehydration and overall failure to thrive. Patient was alert and orient x 4, GCS of 15 speaking in complete sentences. mentioned that patient has experienced numerous falls within the past year, increasing within the past 3 months. Patient also had 5 iron infusions in the past month. Patient has increasing general global weakness, difficulty with ambulating to the point where he is unable to meet his daily needs. Patient also showing signs of dehydration with positive skin turgor. Patient denied any chest pain or abdominal pain or difficulty breathing. Patient's blood glucose was 111 mg/dL. Other vital stable. Patient was given 500 mL bolus of normal saline. Blood pressure 133/54 pulse rate 68 respirations 16 saturation 98%. Blood test shows normal WBC hemoglobin 11.7 platelets 190. Sodium 136 potassium 3.7 renal functions are normal. Hemoglobin A1c 6.6, TSH normal 4.04. Patient's EKG and chest x-ray are normal. MRI of the cervical spine without contrast on 04/29/2022 revealed moderate to advanced multilevel spondylotic changes with reversal of normal cervical lordosis and degenerative grade 1 spondylolisthesis at C3-4, C5-6, C6-7 and nearly grade 2 at C3-4. Extensive patient motion degrading assessment for any discrete cord signal abnormality. At least moderate spinal canal stenosis at C3-4. At least mild spinal canal stenosis at C4-5 and C5-6, and C6-7. Very well moderate to severe neuroforaminal stenosis. Patient's mentions that after this MRI, he spoke to his rn intern, who recommended no surgery. Patient has not seen a neurosurgeon for it. Patient has history of diabetes for 15 years. Patient has smoked 1-1/2 pack/day for 20 years, quit at age 51. Denies any alcohol use, occasionally drinks a glass of wine. Patient's mentions that he has a walker which she used to use for long distance walking outside since last 6 months. However since his last fall in end of March 2023, he has been using his walker inside his home as well. Review of Systems Constitutional: Denies chills, Denies fever Eyes: denies blurred vision, denies diplopia, denies pain, denies loss of vision Ears: bilateral: decreased hearing (Age related), deny: ear discharge, earache, tinnitus Ears, nose, mouth and throat: Denies headache, Denies sore throat, Denies vertigo Cardiovascular: Reports lightheadedness, Denies chest pain, Denies shortness of breath, Denies syncope Respiratory: Denies cough, Denies excessive sputum Gastrointestinal: Denies abdominal pain, Denies diarrhea, Denies nausea, Denies vomiting Genitourinary: Reports incontinence (Uses briefs in he last 4-5 months), Reports urinary frequency (urgency) Musculoskeletal: Reports low back pain (Only when tires), Reports neck pain, Denies myalgias Integumentary: Denies pruritus, Denies rash Neurological: Reports as per HPI Psychiatric: Reports depression, Denies anxiety Hematologic/Lymphatic: Reports easy bleeding, Reports easy bruising Past Medical History Past Medical History: Coronary Artery Disease (CAD), Cancer, Diabetes Mellitus, Hyperlipidemia, Hypertension, Osteoarthritis (OA) History of Any Multi-Drug Resistant Organisms: None Reported Past Surgical History: Heart Catheterization With Stent, Hernia Repair, Pacemaker, Prostate Surgery Past Anesthesia/Blood Transfusion Reactions: No Reported Reaction Date of Last Stent Placement:: 2021 Type of Cardiac Device: Loop Device Placement Date:: 02/2024 Past Psychological History: No Psychological Hx Reported Smoking Status: Former smoker Past Alcohol Use History: None Reported Past Drug Use History: None Reported Medications and Allergies Home Medications Medication Instructions Recorded Confirmed Type Ascorbic Acid [Vitamin C] 500 mg PO DAILY@1200 07/01/23 07/01/23 History Aspirin 81 mg PO DAILY 07/01/23 07/01/23 History Cholecalciferol (Vitamin D3) 75 mcg PO DAILY@1200 07/01/23 07/01/23 History [Vitamin D3 (3000 Iu)] Furosemide [Lasix] 20 mg PO DAILY 07/01/23 07/01/23 History Glimepiride [Amaryl] 2 mg PO AC-BRKFST 07/01/23 07/01/23 History Levothyroxine Sodium [Synthroid] 25 mcg PO DAILY 07/01/23 07/01/23 History Nitroglycerin Sl Tabs [Nitrostat] 0.4 mg SUBLINGUAL Q5M PRN 07/01/23 07/01/23 History Rosuvastatin [Crestor] 10 mg PO HS 07/01/23 07/01/23 History Tamsulosin HCl [Flomax] 0.4 mg PO DAILY@1200 07/01/23 07/01/23 History amLODIPine [Norvasc] 5 mg PO DAILY 07/01/23 07/01/23 History carvediloL [Coreg] 12.5 mg PO BID 07/01/23 07/01/23 History lisinopriL [Zestril] 20 mg PO HS 07/01/23 07/01/23 History metFORMIN HCL 500 mg PO BID 07/01/23 07/01/23 History Allergies Allergy/AdvReac Type Severity Reaction Status Date / Time No Known Allergies Allergy Verified 07/01/23 13:42 Physical Examination - Vital Signs Vital Signs: Vital Signs Temp Pulse Resp BP Pulse Ox 07/03/23 08:00 72 15 07/03/23 07:38 98.1 F 72 15 157/82 94 L 07/03/23 01:07 98.0 F 62 16 159/75 95 07/02/23 20:11 97.4 F L 62 16 115/66 96 07/02/23 13:40 98.1 F 59 L 17 119/61 96 Intake and Output 07/02/23 07/03/23 07/03/23 22:59 06:59 14:59 Other: Voiding Method Urinal Urinal # Voids 6 5 Patient is an elderly male, sitting comfortably in the recliner. In no acute distress. Patient is alert awake oriented to time place and person. He thinks it is April and the year is 2023 and he knows that he is in [facility] imported on [place]. He knows name of the current president Mr. Alonso. Patient has slow mentation, prolonged latency time to answer questions. Speech and language functions are normal. Patient can name and repeat very well. No aphasia or dysarthria. Attention, concentration and fund of knowledge is adequate. On cranial nerve examination, pupils are equal, round and reacting to light, visual ovalles are full on confrontation, with no neglect on double simultaneous stimulation. Extraocular muscles are intact with no nystagmus. Face is symmetric, tongue protrudes to the midline. Palatal elevation and sensation normal, hearing and shoulder shrug normal, facial sensation normal. On muscle strength testing, there is no pronator drift and the strength is normal in arms and legs distally and proximally. No obvious weakness noted, except hip flexion which is 5 to 5- bilaterally. Deep tendon reflexes are symmetric, trace at the biceps, trace brachioradialis, 1+ at the knees, trace ankles and plantars are downgoing bilaterally. Sensory to touch is equal with no neglect on double simultaneous stimulation. Cerebellar function showed no ataxia for [id number] testing. No dysdiadochokinesia. No ataxia for [id number] testing on either side. Tone and bulk of muscles normal. No tremors at rest present. Gait was attempted. Patient had difficulty getting up from the recliner. He used both hands full strength to get off the recliner. He was standing with stoop and partial knee flexed. On straightening, he was able to make a few steps with his walker but was very shuffling gait. On general examination, there is no carotid bruit or murmur, S1-S2 audible. Chest is clear on consultation. Abdomen is soft nontender. No organomegaly, bowel sounds present. Peripheral pulses are present. There is mild peripheral edema. Results - Laboratory Findings CBC and BMP: 07/03/23 08:59 07/03/23 08:59 Abnormal Lab Findings: Abnormal Labs 07/01/23 07/01/23 07/01/23 12:55 12:55 12:55 RBC 4.14 L Hgb 11.7 L Hct 36.3 L RDW 18.4 H Sodium 136 L Glucose POC Glucose (mg/dL) Hemoglobin A1c Calcium 8.3 L NT-Pro-B Natriuret Pep 571 H 07/02/23 07/02/23 07/02/23 07:33 09:22 11:26 RBC Hgb Hct RDW Sodium Glucose POC Glucose (mg/dL) 112 H 366 H Hemoglobin A1c 6.6 H Calcium NT-Pro-B Natriuret Pep 07/02/23 07/02/23 07/02/23 16:13 16:28 16:42 RBC Hgb Hct RDW Sodium Glucose POC Glucose (mg/dL) 47 L 57 L 68 L Hemoglobin A1c Calcium NT-Pro-B Natriuret Pep 07/02/23 07/03/23 07/03/23 20:49 06:00 08:59 RBC Hgb Hct RDW Sodium 135 L Glucose 207 H POC Glucose (mg/dL) 209 H 118 H Hemoglobin A1c Calcium NT-Pro-B Natriuret Pep 07/03/23 11:21 RBC Hgb Hct RDW Sodium Glucose POC Glucose (mg/dL) 165 H Hemoglobin A1c Calcium NT-Pro-B Natriuret Pep Assessment and Plan Assessment: * 87-year-old male presenting with generalized weakness, episodes of dizziness of unclear etiology. Patient is not a good historian, therefore difficult to evaluate, as patient states that his symptoms have been present for "couple years", progressively getting worse. I did not notice any signs of Parkinson's although he has bradykinesia, but no rigidity or tremors at rest. His gait is very shuffling however. I suspect his problem is multifactorial related to some reasons mentioned below. Also some component of deconditioning from recent hospitalizations, cervical spondylosis, perhaps some peripheral neuropathy related to diabetes may be contributing. Examination otherwise is nonfocal. * Cervical spondylosis and spondylolisthesis * Diabetes, well-controlled with A1c 6.6 * Hyperlipidemia * Hypertension * CAD * Ex tobacco use Plan: * Patient does not have any obvious signs of Parkinson's. CT head does reveal evidence of significant atrophy but no evidence of hydrocephalus/NPH. * Patient does have cervical spinal stenosis and spondylolisthesis for which he has never seen neurosurgeon. We will consult orthopedic spine. * We will also check B12, folate, MMA, B6. * Hemoglobin A1c 6.6, which is well-controlled. TSH normal 4.04. * PT, OT evaluate gait. * Suggest patient undergo RICHARD scan as outpatient to rule out any Parkinson's or Parkinson's plus. * Neurology will follow. Thank you for the consult. Time with Patient: Greater than 30 (Complexity, high.)
--- NOTE | 2023-07-04 10:05 | CT ---
EXAMINATION TYPE: CT brain wo con CT DLP: 1101.4 mGycm, Automated exposure control for dose reduction was used. DATE OF EXAM: 07/04/2023 9:41 AM COMPARISON: 01/23/2023. CLINICAL INDICATION:Male, 87 years old with history of Weakness, dizziness., Weakness, dizziness. TECHNIQUE: Brain: Axial CT images of the brain were obtained with coronal and sagittal reformats created and rev iewed. Contrast used: None. Oral contrast used: None. FINDINGS: Brain: Extra-axial spaces: No abnormal extra-axial fluid collections. Ventricular system: Within normal limits Cerebral parenchyma: Cerebral atrophy. No acute intraparenchymal hemorrhage or mass effect. The ricardo -white junction is well differentiated. Scattered hypoattenuating areas are seen within the white mat ter. Cerebellum: Unremarkable. Mass effect: No evidence of midline shift. Intracranial vasculature: Atherosclerotic calcifications of the intracranial vessels. Soft tissues: Normal. Calvarium/osseous structures: No depressed skull fracture. Paranasal sinuses and mastoid air cells: Mild scattered paranasal sinus disease. Visualized orbits: Bilateral aphakia IMPRESSION: 1. No acute intracranial process. 2. Nonspecific white matter changes, likely secondary to chronic small vessel ischemic disease.
[2023-07-04 11:44] LABS: Glucose,Whole Blood 165 mg/dL (70-110)
--- NOTE | 2023-07-04 15:53 | US ---
EXAMINATION TYPE: US carotid duplex BILAT DATE OF EXAM: 07/04/2023 COMPARISON: NONE CLINICAL INDICATION: Male, 87 years old with history of dizziness; Dizziness. Prior smoker, hypertens ion. Hyperlipidemia. Diabetes. TECHNIQUE: Carotid duplex ultrasound examination. Indirect Doppler criteria was utilized. 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 Left ICA appears very tortuous- limiting ev aluation. Plaque seen within bilateral bulbs and bilateral proximal bifurcations. IMPRESSION: Tortuous left carotid system limiting the evaluation. The elevated velocities could reflect turbulent flow versus moderate, 50-69% stenoses in both the left common and left internal carotid arteries. Criteria for Assigning % of Stenosis / Diameter reduction (Estimation based on the indirect measurements of the internal carotid artery velocities (ICA PSV). 1. Normal (no stenosis)=ICA PSV < 125 cm/s: ratio < 2.0: ICA EDV<40 cm/s. 2. Less than 50% stenosis=ICA PSV < 125 cm/s: ratio < 2.0: ICA EDV<40 cm/s. 3. 50 to 69% stenosis=ICA PSV of 125 to 230 cm/s: ration 2.0 ? 4.0: ICA EDV 40-100 cm/s. 4. Greater than 70% stenosis to near occlusion= ICA PSV > 230 cm/s: ratio > 4.0: ICA EDV > 100 cm/s. 5. Near occlusion= ICA PSV velocities may be low or undetectable: variable ratio and ICA EDV. 6. Total occlusion=unable to detect flow.
[2023-07-04 16:35] LABS: Glucose,Whole Blood 194 mg/dL (70-110)
--- NOTE | 2023-07-04 17:48 | CT ---
EXAMINATION TYPE: CT cervical spine wo con CT DLP: 482.1 mGycm, Automated exposure control for dose reduction was used. DATE OF EXAM: 07/04/2023 5:33 PM COMPARISON: 01/23/2023.. CLINICAL INDICATION:Male, 87 years old with history of history of fall with weakenss; PHH, weakness, recent fall TECHNIQUE: Axial CT images from the skull base to the inferior aspect of T2 we obtained without intra venous contrast. Coronal and sagittal reformatted images were also reviewed. Contrast used: mL of , (if blank None) Oral contrast used: (if blank None) FINDINGS: Fracture: None. Osseous structures: Multilevel degenerative disc disease changes with endplate spurring and disc oste ophyte complex's. Vertebral alignment: There is grade 1 anterolisthesis of C3 on C4 and C5 and C6. Spinal canal/Neural Foramina: Disc osteophyte complexes at C3-C4 C4-C5 bilaterally with moderate to s evere spinal canal stenosis. No evidence for significant neural foraminal stenosis. Neck soft tissues: Prevertebral soft tissues are within normal limits. Other: The airway is patent. The lung apices are clear. Atherosclerosis of the carotid bifurcations b ilaterally. IMPRESSION: 1. No evidence of cervical spine fracture. 2. Large severe multilevel degenerative disc disease. 3. Grade 1 anterolisthesis of C3 on C4 and C5 on C6.
[2023-07-04 20:26] LABS: Glucose,Whole Blood 156 mg/dL (70-110)
--- NOTE | 2023-07-05 00:11 | P.PN ---
Subjective Progress Note Date: 07/04/23 Patient was seen for a follow-up. Patient denies any new conditions. No new symptoms. Patient states that his neck does bother, but not all the time. Objective - Vital Signs Vital signs: Vital Signs Temp 98.1 F 07/04/23 19:04 Pulse 72 07/04/23 19:04 Resp 16 07/04/23 19:04 BP 135/76 07/04/23 19:04 Pulse Ox 94 L 07/04/23 19:04 FiO2 Intake & Output 07/04/23 07/04/23 07/05/23 06:59 18:59 06:59 Output Total 250 Balance -250 Output: Urine 250 Other: Voiding Method Urinal Urinal Diaper # Voids 3 6 # Bowel Movements 1 - Exam Patient is laying in the bed. Examination deferred. - Labs CBC & Chem 7: 07/03/23 08:59 07/03/23 08:59 Labs: Abnormal Lab Results - Last 24 Hours (Table) 07/04/23 07/04/23 07/04/23 Range/Units 01:19 03:15 05:42 POC Glucose (mg/dL) 59 L 135 H 201 H (70-110) mg/dL 07/04/23 07/04/23 07/04/23 Range/Units 11:43 16:32 20:24 POC Glucose (mg/dL) 165 H 194 H 156 H (70-110) mg/dL Assessment and Plan Assessment: * 87-year-old male presenting with generalized weakness, episodes of dizziness of unclear etiology. Patient is not a good historian, therefore difficult to evaluate, as patient states that his symptoms have been present for "couple years", progressively getting worse. I did not notice any signs of Parkinson's although he has bradykinesia, but no rigidity or tremors at rest. His gait is very shuffling however. I suspect his problem is multifactorial related to some reasons mentioned below. Also some component of deconditioning from recent hospitalizations, cervical spondylosis, perhaps some peripheral neuropathy related to diabetes may be contributing. Examination otherwise is nonfocal. * Cervical spondylosis and spondylolisthesis * Diabetes, well-controlled with A1c 6.6 * Hyperlipidemia * Hypertension * CAD * Ex tobacco use Plan: * Patient does not have any obvious signs of Parkinson's. CT head performed today revealed no acute process. On my review, there is evidence of significant atrophy but no evidence of hydrocephalus/NPH. * Patient does have cervical spinal stenosis and spondylolisthesis for which he has never seen neurosurgeon. Orthopedic spine input appreciated. * CT of the cervical spine chest revealed no fracture. Large severe multilevel degenerative disc disease. Grade 1 anterolisthesis of C3 on C4 and C5 on C6. MRI of the cervical spine ordered by orthopedic spine. * B12 562, folate 16.8, MMA, B6 still pending. * Hemoglobin A1c 6.6, which is well-controlled. TSH normal 4.04. * PT, OT evaluate gait. * Suggest patient undergo RICHARD scan as outpatient to rule out any Parkinson's or Parkinson's plus. * Carotid Doppler revealed tortuous left carotid system limiting the evaluation. The elevated velocities could reflect turbulent flow versus moderate 50 to 69% stenosis in both the left common and left ICA. Antegrade flow in both vertebral arteries. * Consult vascular surgery. * Dr. Castellano covering neurology service over the weekend.
--- NOTE | 2023-07-05 05:40 | P.PN ---
Subjective Progress Note Date: 07/04/23 This is a pleasant 87-year-old gentleman with past medical history significant for CAD, diabetes mellitus, hypertension, hyperlipidemia, osteoarthritis, permanent pacemaker, prostate surgery, former nicotine dependence, gait dysfunction, uses a walker, and multiple other medical issues presented to the ER with complaints of progressive weakness. at bedside states that since this past February patient started having worsening function, difficulty getting out of bed and supporting his own weight. She also states patient was admitted to [facility] last year for bleeding and diverticulitis. Apparently yesterday patient had an episode of going to the bathroom began to feel extremely weak and attempted to lower himself to the ground-witnessed by his . Denies syncope, denies head trauma, denies trauma. Denies rectal bleeding/dark or black stools, denies pain. Denies recent illness. Denies nausea vomiting or diarrhea. Denies abdominal pain. Blood sugars controlled. Denies weight loss. denies lightheadedness dizziness or focal deficits. reports patient stopped taking his Lasix a couple days ago and she notices levothyroxine medication was missing off the list he gave. Denies chills, coldness or fatigue. ProBNP 571 .denies chest pain palpitations or shortness of breath. Denies cough or congestion. currently requiring 2 L nasal cannula to maintain O2 sats in the 90s. Procalcitonin 0.05 hypertensive. Magnesium 1.7, supplemented. 07/03/2023 reports he did not sleep well denies chest pain, palpitations or shortness of breath. Maintaining O2 sats in the 90s on room air. Chest x-ray reported nonacute. TSH 4.04, hemoglobin A1c 6.6. Blood sugars ranging from 1 teens up to low 200s. afebrile, procalcitonin normal, 0.05. Reports dizziness upon standing. Orthostatic vital signs ordered. Neurology consult in place, recommendations pending. Evaluated by PT, recommending subacute rehab at discharge. 07/04/2023 Patient is seen and evaluated in follow-up with family at the bedside. Patient undergoing neurological workup as patient continues to report dizziness and gait dysfunction awaiting to undergo an MRI. Case management/social work as well as PT/OT therapy following as well planning on ECF for continued strength and mobility. Patient is currently afebrile with no reports of chest pain or shortness of breath. Patient tolerating diet with no reports of nausea or vomiting. Encouraged oral intake and increased activity as tolerated. Will aw ait further neurological workup heather with other consultations regarding discharge planning. Plan is for ECF on discharge Review of systems: Constitutional: No reports of fatigue, fever, or chills Cardiovascular: No reports of chest pain or palpitations Respiratory: No reports of shortness of breath or cough GI: No reports of nausea, vomiting, or diarrhea : No reports of dysuria or retention Neurovascular: reports of generalized weakness and difficulty with ambulation All medications have been reviewed Physical exam: Gen: This is a 87-year-old male who is awake, thin built, elderly appearing, alert and oriented x 2-3, well-developed HEENT: Head is atraumatic, normocephalic. Pupils equal, round. Sclerae is anicteric. NECK: Supple. No JVD. No lymphadenopathy. No thyromegaly. LUNGS: Diminished breath sounds bilaterally otherwise clear to auscultation. No wheezes or rhonchi. No intercostal retractions. HEART: S1, S2 are muffled ABDOMEN: Soft. Bowel sounds are present. No masses. No tenderness. EXTREMITIES: No pedal edema. No calf tenderness. NEUROLOGICAL: Patient is awake, alert and oriented x3. Cranial nerves 2 through 12 are grossly intact. Diffusely weak Assessment: Near syncope, reported increasing weakness over the last 3-4 months, greatest noted in left lower extremity. Acute hypoxic respiratory failure, resolved Hypertension Osteoarthritis Gait dysfunction, uses a walker Medical debility Chronic CHF, systolic dysfunction CAD PPM Diabetes mellitus, hemoglobin A1c pending History of prostate surgery Former nicotine dependence Hypokalemia, replaced Hypomagnesemia, supplemented Obesity, BMI 30 GI prophylaxis DVT prophylaxis Full code Plan: Patient is being closely monitored with neurology following undergoing further neurological workup including MRI which is pending Recommend PT/OT therapy daily as patient has been having progressive weakness and will require ECF on discharge Case management/social work following working on discharge planning which will be arranged once cleared by neurology Encouraged oral intake Continue monitoring Accu-Cheks before meals and at bedtime will use sliding scale as needed Follow-up on repeat labs and replace electrolytes per protocol Due to multiple complex medical issues, prognosis is guarded Will need consultation clearance prior to discharge planning to ECF. Possibly Friday The impression and plan of care has been dictated by Nedra Cifuentes, Nurse Practitioner as directed. Dr. Vern MD I have performed a history and examination and MDM of this patient, discussed the same with the dictator, and agree with the dictator's assessment and plan as written ,documented as a scribe. Based on total visit time, I have performed more than 50% of the visit. Objective - Vital Signs Vital signs: Vital Signs Temp 98.3 F 07/04/23 07:40 Pulse 62 07/04/23 08:00 Resp 17 07/04/23 08:00 BP 185/81 07/04/23 07:40 Pulse Ox 97 07/04/23 07:40 FiO2 Intake & Output 07/03/23 07/04/23 07/04/23 18:59 06:59 18:59 Output Total 250 Balance -250 Output: Urine 250 Other: Voiding Method Diaper Urinal Urinal Diaper # Voids 10 3 - Labs CBC & Chem 7: 07/03/23 08:59 07/03/23 08:59 Labs: Abnormal Lab Results - Last 24 Hours (Table) 07/03/23 07/03/23 07/03/23 Range/Units 08:59 16:44 20:26 RBC 4.33 L (4.40-5.60) X 10*6/uL Hgb 12.0 L (13.0-17.0) g/dL Hct 38.2 L (39.6-50.0) % MCHC 31.4 L (32.0-37.0) g/dL RDW 18.6 H (11.5-14.5) % POC Glucose (mg/dL) 150 H 163 H (70-110) mg/dL 07/04/23 07/04/23 07/04/23 Range/Units 01:19 03:15 05:42 RBC (4.40-5.60) X 10*6/uL Hgb (13.0-17.0) g/dL Hct (39.6-50.0) % MCHC (32.0-37.0) g/dL RDW (11.5-14.5) % POC Glucose (mg/dL) 59 L 135 H 201 H (70-110) mg/dL 07/04/23 Range/Units 11:43 RBC (4.40-5.60) X 10*6/uL Hgb (13.0-17.0) g/dL Hct (39.6-50.0) % MCHC (32.0-37.0) g/dL RDW (11.5-14.5) % POC Glucose (mg/dL) 165 H (70-110) mg/dL
[2023-07-05 06:05] LABS: Glucose,Whole Blood 147 mg/dL (70-110)
--- NOTE | 2023-07-05 09:31 | P.CNOR ---
History of Present Illness - HPI Consult date: 07/05/23 Consult reason: other (Cervical stenosis) History of present illness: The patient is an 87-year-old male who presented to the emergency department with weakness. History is limited at this time from the patient directly. No family at the bedside this morning. According to the ER note the patient has been declining since February and the patient's does not feel safe with him at home. The patient was instructed to come to the emergency department from his primary care physician for further evaluation for the weakness and failure to thrive. The patient has been seen by neurology and a brain CT was completed. Neurology consulted us for further evaluation of his cervical stenosis that could be contributing to his weakness. This morning, the patient states that he does not have neck pain or numbness or tingling in his arms. Review of Systems Constitutional: Denies chills, Denies fatigue, Denies fever Cardiovascular: Denies chest pain, Denies shortness of breath Respiratory: Denies cough Gastrointestinal: Denies diarrhea, Denies nausea, Denies vomiting Musculoskeletal: Reports as per HPI, Denies arm numbness/tingling, Denies neck pain Past Medical History Past Medical History: Coronary Artery Disease (CAD), Cancer, Diabetes Mellitus, Hyperlipidemia, Hypertension, Osteoarthritis (OA) History of Any Multi-Drug Resistant Organisms: None Reported Past Surgical History: Heart Catheterization With Stent, Hernia Repair, Pacemaker, Prostate Surgery Past Anesthesia/Blood Transfusion Reactions: No Reported Reaction Date of Last Stent Placement:: 2021 Type of Cardiac Device: Loop Device Placement Date:: 02/2024 Past Psychological History: No Psychological Hx Reported Smoking Status: Former smoker Past Alcohol Use History: None Reported Past Drug Use History: None Reported Medications and Allergies Home Medications Medication Instructions Recorded Confirmed Type Ascorbic Acid [Vitamin C] 500 mg PO DAILY@1200 07/01/23 07/01/23 History Aspirin 81 mg PO DAILY 07/01/23 07/01/23 History Cholecalciferol (Vitamin D3) 75 mcg PO DAILY@1200 07/01/23 07/01/23 History [Vitamin D3 (3000 Iu)] Furosemide [Lasix] 20 mg PO DAILY 07/01/23 07/01/23 History Glimepiride [Amaryl] 2 mg PO AC-BRKFST 07/01/23 07/01/23 History Levothyroxine Sodium [Synthroid] 25 mcg PO DAILY 07/01/23 07/01/23 History Nitroglycerin Sl Tabs [Nitrostat] 0.4 mg SUBLINGUAL Q5M PRN 07/01/23 07/01/23 History Rosuvastatin [Crestor] 10 mg PO HS 07/01/23 07/01/23 History Tamsulosin HCl [Flomax] 0.4 mg PO DAILY@1200 07/01/23 07/01/23 History amLODIPine [Norvasc] 5 mg PO DAILY 07/01/23 07/01/23 History carvediloL [Coreg] 12.5 mg PO BID 07/01/23 07/01/23 History lisinopriL [Zestril] 20 mg PO HS 07/01/23 07/01/23 History metFORMIN HCL 500 mg PO BID 07/01/23 07/01/23 History Allergies Allergy/AdvReac Type Severity Reaction Status Date / Time No Known Allergies Allergy Verified 07/01/23 13:42 Physical Examination The patient is an 87-year-old male in no acute distress. He is alert and oriented x 2. Exam of the cervical spine reveals no open wounds or dimples to the posterior or anterior neck. There is no pain upon active range of motion of the neck. There is no pain to palpation to the neck, upper back and shoulders. There is good government teacher to the bilateral hands. Neurological and circulatory status is intact in the bilateral upper extremities. Results CT of the cervical spine dated 07/04/2023 reveals no evidence of fracture. Severe multilevel degenerative disc disease and grade 1 anterolisthesis of C3 on C4 and C5 and C6. There is moderate to severe spinal canal stenosis at C3-C4 and C4-C5. - Labs Labs: Abnormal Lab Results - Last 24 Hours (Table) 07/04/23 07/04/23 07/04/23 Range/Units 11:43 16:32 20:24 POC Glucose (mg/dL) 165 H 194 H 156 H (70-110) mg/dL 07/05/23 Range/Units 06:03 POC Glucose (mg/dL) 147 H (70-110) mg/dL H & H 07/01/23 07/03/23 Range/Units 12:55 08:59 Hgb 11.7 L 12.0 L (13.0-17.5) gm/dL Hct 36.3 L 38.2 L (39.0-53.0) % Result Diagrams: 07/03/23 08:59 07/03/23 08:59 Assessment and Plan (1) Weakness Current Visit: Yes Status: Acute Code(s): R53.1 - WEAKNESS SNOMED Code(s): 96994653 (2) Degenerative cervical disc Current Visit: Yes Status: Acute Code(s): M50.30 - OTHER CERVICAL DISC DEGENERATION, UNSP CERVICAL REGION SNOMED Code(s): 31396403 (3) Cervical spinal stenosis Current Visit: Yes Status: Acute Code(s): M48.02 - SPINAL STENOSIS, CERVICAL REGION SNOMED Code(s): 88592326 (4) Gravely disabled Current Visit: Yes Status: Acute Code(s): YGB1444 - SNOMED Code(s): 955876245 Plan: The clinical and imaging findings were discussed with the patient. The case was discussed at length with Dr. Ramos. The patient seems to be comfortable in regards to his cervical spine at this time. No surgical intervention is planned. No further treatment or recommendations are needed at this time due to the patient's lack of symptoms in regards to his cervical spine. If the patient develops any issues with weakness, numbness, or pain in the neck or upper extremities, we would be happy to reevaluate the patient. We will sign off at this time.
[2023-07-05 09:51] LABS: Basophils # (A) 0.07 X 10*3/uL (0.00-0.10); Basophils % (A) 1.1 %; Eosinophils # (A) 0.24 X 10*3/uL (0.04-0.35); Eosinophils % (A) 3.7 %; HCT 37.3 % (39.6-50.0); HGB 11.6 g/dL (13.0-17.0); Lymphocytes % (A) 24.8 %; MCH 27.8 pg (27.0-32.0); MCHC 31.1 g/dL (32.0-37.0); MCV 89.4 FL (80.0-97.0); Mean Platelet Volume 10.9 FL (9.5-12.2); Monocytes # (A) 0.59 X 10*3/uL (0.20-1.00); Monocytes % (A) 9.1 %; NRBC Per 100 WBC 0 X 10*3/uL (0.00-0.01); Neutrophils # (A) 3.92 X 10*3/uL (1.80-7.70); Neutrophils % (A) 60.7 %; Platelet Count 189 X 10*3/uL (140-440); RBC 4.17 X 10*6/uL (4.40-5.60); RDW 18.8 % (11.5-14.5); WBC 6.46 X 10*3/uL (4.50-10.00)
[2023-07-05 11:06] LABS: Glucose,Whole Blood 235 mg/dL (70-110)
[2023-07-05 11:46] LABS: BUN/Creat Ratio 21.88 Ratio (12.00-20.00); Blood Urea Nitrogen 17.5 mg/dL (9.0-27.0); Calcium 8.7 mg/dL (8.7-10.3); Carbon Dioxide 30.5 mmol/L (21.6-31.8); Chloride 102 mmol/L (96-109); Glucose 140 mg/dL (70-110); Magnesium 1.9 mg/dL (1.5-2.4); Potassium 4.1 mmol/L (3.5-5.5); Sodium 141 mmol/L (135-145)
[2023-07-05 13:49] VITALS: BMI 29.5
--- NOTE | 2023-07-05 15:29 | P.GSCN ---
History of Present Illness Consult date: 07/05/23 Reason for Consult: Carotid stenosis. History of present illness: Patient is an 87-year-old gentleman who was admitted to the hospital with a d iagnosis of general fatigue and malaise. During workup of this carotid duplex study was performed. Concerns expressed for carotid stenosis as a possible contributing factor to the patient's clinical scenario. I discussed and confirmed everything with the patient's spouse. Past Medical History Past Medical History: Coronary Artery Disease (CAD), Cancer, Diabetes Mellitus, Hyperlipidemia, Hypertension, Osteoarthritis (OA) History of Any Multi-Drug Resistant Organisms: None Reported Past Surgical History: Heart Catheterization With Stent, Hernia Repair, Pacemaker, Prostate Surgery Past Anesthesia/Blood Transfusion Reactions: No Reported Reaction Date of Last Stent Placement:: 2021 Type of Cardiac Device: Loop Device Placement Date:: 02/2024 Past Psychological History: No Psychological Hx Reported Smoking Status: Former smoker Past Alcohol Use History: None Reported Past Drug Use History: None Reported Medications and Allergies Home Medications Medication Instructions Recorded Confirmed Type Ascorbic Acid [Vitamin C] 500 mg PO DAILY@1200 07/01/23 07/01/23 History Aspirin 81 mg PO DAILY 07/01/23 07/01/23 History Cholecalciferol (Vitamin D3) 75 mcg PO DAILY@1200 07/01/23 07/01/23 History [Vitamin D3 (3000 Iu)] Furosemide [Lasix] 20 mg PO DAILY 07/01/23 07/01/23 History Glimepiride [Amaryl] 2 mg PO AC-BRKFST 07/01/23 07/01/23 History Levothyroxine Sodium [Synthroid] 25 mcg PO DAILY 07/01/23 07/01/23 History Nitroglycerin Sl Tabs [Nitrostat] 0.4 mg SUBLINGUAL Q5M PRN 07/01/23 07/01/23 History Rosuvastatin [Crestor] 10 mg PO HS 07/01/23 07/01/23 History Tamsulosin HCl [Flomax] 0.4 mg PO DAILY@1200 07/01/23 07/01/23 History amLODIPine [Norvasc] 5 mg PO DAILY 07/01/23 07/01/23 History carvediloL [Coreg] 12.5 mg PO BID 07/01/23 07/01/23 History lisinopriL [Zestril] 20 mg PO HS 07/01/23 07/01/23 History metFORMIN HCL 500 mg PO BID 07/01/23 07/01/23 History Allergies Allergy/AdvReac Type Severity Reaction Status Date / Time No Known Allergies Allergy Verified 07/01/23 13:42 Surgical - Exam Osteopathic Statement: *. No significant issues noted on an osteopathic structural exam other than those noted in the History and Physical/Consult. Vital Signs Temp Pulse Resp BP Pulse Ox 97.4 F L 65 18 167/77 97 07/01/23 12:16 07/01/23 12:16 07/01/23 12:16 07/01/23 12:16 07/01/23 12:16 Patient Seen Date: 07/05/23 Patient Seen Time: 14:25 Patient is awake and alert although appears somewhat debilitated. Patient is ambulatory with a walker and appears to have equal motor function of both lower extremities. Cranial nerves II through XII are grossly intact. There are no carotid bruits noted. Results - Labs 07/05/23 05:48 07/05/23 05:48 Abnormal Lab Results - Last 24 Hours (Table) 07/04/23 07/04/23 07/05/23 Range/Units 16:32 20:24 05:48 RBC 4.17 L (4.40-5.60) X 10*6/uL Hgb 11.6 L (13.0-17.0) g/dL Hct 37.3 L (39.6-50.0) % MCHC 31.1 L (32.0-37.0) g/dL RDW 18.8 H (11.5-14.5) % BUN/Creatinine Ratio (12.00-20.00) Ratio Glucose (70-110) mg/dL POC Glucose (mg/dL) 194 H 156 H (70-110) mg/dL 07/05/23 07/05/23 07/05/23 Range/Units 05:48 06:03 11:04 RBC (4.40-5.60) X 10*6/uL Hgb (13.0-17.0) g/dL Hct (39.6-50.0) % MCHC (32.0-37.0) g/dL RDW (11.5-14.5) % BUN/Creatinine Ratio 21.88 H (12.00-20.00) Ratio Glucose 140 H (70-110) mg/dL POC Glucose (mg/dL) 147 H 235 H (70-110) mg/dL Diabetes panel 07/05/23 Range/Units 05:48 Sodium 141 (135-145) mmol/L Potassium 4.1 (3.5-5.5) mmol/L Chloride 102 (96-109) mmol/L Carbon Dioxide 30.5 (21.6-31.8) mmol/L BUN 17.5 (9.0-27.0) mg/dL Creatinine 0.8 (0.6-1.5) mg/dL Glucose 140 H (70-110) mg/dL Calcium 8.7 (8.7-10.3) mg/dL Calcium panel 07/05/23 Range/Units 05:48 Calcium 8.7 (8.7-10.3) mg/dL Pituitary panel 07/05/23 Range/Units 05:48 Sodium 141 (135-145) mmol/L Potassium 4.1 (3.5-5.5) mmol/L Chloride 102 (96-109) mmol/L Carbon Dioxide 30.5 (21.6-31.8) mmol/L BUN 17.5 (9.0-27.0) mg/dL Creatinine 0.8 (0.6-1.5) mg/dL Glucose 140 H (70-110) mg/dL Calcium 8.7 (8.7-10.3) mg/dL Adrenal panel 07/05/23 Range/Units 05:48 Sodium 141 (135-145) mmol/L Potassium 4.1 (3.5-5.5) mmol/L Chloride 102 (96-109) mmol/L Carbon Dioxide 30.5 (21.6-31.8) mmol/L BUN 17.5 (9.0-27.0) mg/dL Creatinine 0.8 (0.6-1.5) mg/dL Glucose 140 H (70-110) mg/dL Calcium 8.7 (8.7-10.3) mg/dL - Imaging Additional studies: I personally reviewed the carotid duplex imaging films. Assessment and Plan Assessment: 1: Nonhemodynamically severe carotid stenosis. 2: I do not think the carotids are contributing in any way to the patient's symptoms and would recommend medical management. 3: Will sign off however we will be very happy to reevaluate at your request. (1) Carotid stenosis, asymptomatic Current Visit: Yes Status: Acute Code(s): I65.29 - OCCLUSION AND STENOSIS OF UNSPECIFIED CAROTID ARTERY SNOMED Code(s): 84274535
[2023-07-05 16:20] LABS: Glucose,Whole Blood 192 mg/dL (70-110)
[2023-07-05] MEDS: ASPIRIN-ACET-CAFF 250-250-65MG 1 EACH TAB PO PRN (17:25)
[2023-07-05 21:27] LABS: Glucose,Whole Blood 107 mg/dL (70-110)
--- NOTE | 2023-07-06 02:52 | P.PN ---
Subjective Progress Note Date: 07/05/23 This is a pleasant 87-year-old gentleman with past medical history significant for CAD, diabetes mellitus, hypertension, hyperlipidemia, osteoarthritis, permanent pacemaker, prostate surgery, former nicotine dependence, gait dysfunction, uses a walker, and multiple other medical issues presented to the ER with complaints of progressive weakness. at bedside states that since this past February patient started having worsening function, difficulty getting out of bed and supporting his own weight. She also states patient was admitted to [facility] last year for bleeding and diverticulitis. Apparently yesterday patient had an episode of going to the bathroom began to feel extremely weak and attempted to lower himself to the ground-witnessed by his . Denies syncope, denies head trauma, denies trauma. Denies rectal bleeding/dark or black stools, denies pain. Denies recent illness. Denies nausea vomiting or diarrhea. Denies abdominal pain. Blood sugars controlled. Denies weight loss. denies lightheadedness dizziness or focal deficits. reports patient stopped taking his Lasix a couple days ago and she notices levothyroxine medication was missing off the list he gave. Denies chills, coldness or fatigue. ProBNP 571 .denies chest pain palpitations or shortness of breath. Denies cough or congestion. currently requiring 2 L nasal cannula to maintain O2 sats in the 90s. Procalcitonin 0.05 hypertensive. Magnesium 1.7, supplemented. 07/03/2023 reports he did not sleep well denies chest pain, palpitations or shortness of breath. Maintaining O2 sats in the 90s on room air. Chest x-ray reported nonacute. TSH 4.04, hemoglobin A1c 6.6. Blood sugars ranging from 1 teens up to low 200s. afebrile, procalcitonin normal, 0.05. Reports dizziness upon standing. Orthostatic vital signs ordered. Neurology consult in place, recommendations pending. Evaluated by PT, recommending subacute rehab at discharge. 07/04/2023 Patient is seen and evaluated in follow-up with family at the bedside. Patient undergoing neurological workup as patient continues to report dizziness and gait dysfunction awaiting to undergo further imaging. Case management/social work as well as PT/OT therapy following as well planning on ECF for continued strength and mobility. Patient is currently afebrile with no reports of chest pain or shortness of breath. Patient tolerating diet with no reports of nausea or vomiting. Encouraged oral intake and increased activity as tolerated. Will await further neurological workup heather with other consultations regarding discharge planning. Plan is for ECF on discharge 07/05/2023 Patient is seen and evaluated today currently working with physical therapy and relatively weak and planning on ECF for continued strength and mobility. Pat ient awaiting to be evaluated by orthopedics as well as vascular surgery with concerns of carotid stenosis as well as cervical stenosis the CT imaging. Orthopedics recommending conservative management with no plans of surgical intervention at this time. Per vascular notes, carotid Dopplers reviewed and will continue with medical management with no plans of intervention at this time. Patient is afebrile with no reports of chest pain or shortness of breath. Patient reports is tolerating diet and encouraged to meals. Will discuss further with case management on Friday regarding discharge planning Review of systems: Constitutional: No reports of fatigue, fever, or chills Cardiovascular: No reports of chest pain or palpitations Respiratory: No reports of shortness of breath or cough GI: No reports of nausea, vomiting, or diarrhea : No reports of dysuria or retention Neurovascular: reports of generalized weakness and difficulty with ambulation All medications have been reviewed Physical exam: Gen: This is a 87-year-old male who is awake, thin built, elderly appearing, alert and oriented x 2-3, well-developed HEENT: Head is atraumatic, normocephalic. Pupils equal, round. Sclerae is anicteric. NECK: Supple. No JVD. No lymphadenopathy. No thyromegaly. LUNGS: Diminished breath sounds bilaterally otherwise clear to auscultation. No wheezes or rhonchi. No intercostal retractions. HEART: S1, S2 are muffled ABDOMEN: Soft. Bowel sounds are present. No masses. No tenderness. EXTREMITIES: No pedal edema. No calf tenderness. NEUROLOGICAL: Patient is awake, alert and oriented x3. Cranial nerves 2 through 12 are grossly intact. Gait is slow and shuffled diffusely weak Assessment: Near syncope, reported increasing weakness over the last 3-4 months, greatest noted in left lower extremity. Cervical stenosis, noted on imaging with no plans of surgical intervention, conservative management Acute hypoxic respiratory failure, resolved Hypertension Osteoarthritis Gait dysfunction, uses a walker Medical debility Chronic CHF, systolic dysfunction CAD PPM Diabetes mellitus, type II, [id number] History of prostate surgery Former nicotine dependence Hypokalemia, replaced Hypomagnesemia, supplemented Obesity, BMI 30 GI prophylaxis DVT prophylaxis Full code Plan: Patient is being closely monitored with neurology following undergoing further neurological workup including awaiting orthopedics and vascular surgery consultation Patient was evaluated by consultations with no plans of immediate surgical intervention recommending conservative management and outpatient follow-up. Recommend PT/OT therapy daily as patient has been having progressive weakness and will require ECF on discharge Case management/social work following working on discharge planning which will be arranged once cleared by neurology Encouraged oral intake Continue monitoring Accu-Cheks before meals and at bedtime will use sliding scale as needed Due to multiple complex medical issues, prognosis is guarded Will need consultation clearance prior to discharge planning to ECF. Possibly Friday The impression and plan of care has been dictated by Nurse Dwain Pra ctitioner as directed. Dr. Vern MD I have performed a history and examination and MDM of this patient, discussed the same with the dictator, and agree with the dictator's assessment and plan as written ,documented as a scribe. Based on total visit time, I have performed more than 50% of the visit. Objective - Vital Signs Vital signs: Vital Signs Temp 97.8 F 07/05/23 20:10 Pulse 70 07/05/23 20:10 Resp 19 07/05/23 20:10 BP 128/70 07/05/23 20:10 Pulse Ox 96 07/05/23 20:10 FiO2 Intake & Output 07/05/23 07/05/23 07/06/23 06:59 18:59 06:59 Output Total 1600 Balance -1600 Weight 87.997 kg Output: Urine 1600 Other: Voiding Method Urinal Urinal Diaper Diaper External Catheter # Voids 6 # Bowel Movements 1 - Labs CBC & Chem 7: 07/05/23 05:48 07/05/23 05:48 Labs: Abnormal Lab Results - Last 24 Hours (Table) 07/05/23 07/05/23 07/05/23 Range/Units 05:48 05:48 06:03 RBC 4.17 L (4.40-5.60) X 10*6/uL Hgb 11.6 L (13.0-17.0) g/dL Hct 37.3 L (39.6-50.0) % MCHC 31.1 L (32.0-37.0) g/dL RDW 18.8 H (11.5-14.5) % BUN/Creatinine Ratio 21.88 H (12.00-20.00) Ratio Glucose 140 H (70-110) mg/dL POC Glucose (mg/dL) 147 H (70-110) mg/dL 07/05/23 07/05/23 Range/Units 11:04 16:19 RBC (4.40-5.60) X 10*6/uL Hgb (13.0-17.0) g/dL Hct (39.6-50.0) % MCHC (32.0-37.0) g/dL RDW (11.5-14.5) % BUN/Creatinine Ratio (12.00-20.00) Ratio Glucose (70-110) mg/dL POC Glucose (mg/dL) 235 H 192 H (70-110) mg/dL
[2023-07-06 06:34] LABS: Glucose,Whole Blood 121 mg/dL (70-110)
[2023-07-06 11:35] LABS: Glucose,Whole Blood 142 mg/dL (70-110)
--- NOTE | 2023-07-06 16:18 | P.PN ---
Subjective Progress Note Date: 07/06/23 This is a pleasant 87-year-old gentleman with past medical history significant for CAD, diabetes mellitus, hypertension, hyperlipidemia, osteoarthritis, permanent pacemaker, prostate surgery, former nicotine dependence, gait dysfunction, uses a walker, and multiple other medical issues presented to the ER with complaints of progressive weakness. at bedside states that since this past February patient started having worsening function, difficulty getting out of bed and supporting his own weight. She also states patient was admitted to [facility] last year for bleeding and diverticulitis. Apparently yesterday patient had an episode of going to the bathroom began to feel extremely weak and attempted to lower himself to the ground-witnessed by his . Denies syncope, denies head trauma, denies trauma. Denies rectal bleeding/dark or black stools, denies pain. Denies recent illness. Denies nausea vomiting or diarrhea. Denies abdominal pain. Blood sugars controlled. Denies weight loss. denies lightheadedness dizziness or focal deficits. reports patient stopped taking his Lasix a couple days ago and she notices levothyroxine medication was missing off the list he gave. Denies chills, coldness or fatigue. ProBNP 571 .denies chest pain palpitations or shortness of breath. Denies cough or congestion. currently requiring 2 L nasal cannula to maintain O2 sats in the 90s. Procalcitonin 0.05 hypertensive. Magnesium 1.7, supplemented. 07/03/2023 reports he did not sleep well denies chest pain, palpitations or shortness of breath. Maintaining O2 sats in the 90s on room air. Chest x-ray reported nonacute. TSH 4.04, hemoglobin A1c 6.6. Blood sugars ranging from 1 teens up to low 200s. afebrile, procalcitonin normal, 0.05. Reports dizziness upon standing. Orthostatic vital signs ordered. Neurology consult in place, recommendations pending. Evaluated by PT, recommending subacute rehab at discharge. 07/04/2023 Patient is seen and evaluated in follow-up with family at the bedside. Patient undergoing neurological workup as patient continues to report dizziness and gait dysfunction awaiting to undergo further imaging. Case management/social work as well as PT/OT therapy following as well planning on ECF for continued strength and mobility. Patient is currently afebrile with no reports of chest pain or shortness of breath. Patient tolerating diet with no reports of nausea or vomiting. Encouraged oral intake and increased activity as tolerated. Will await further neurological workup heather with other consultations regarding discharge planning. Plan is for ECF on discharge 07/05/2023 Patient is seen and evaluated today currently working with physical therapy and relatively weak and planning on ECF for continued strength and mobility. Pat ient awaiting to be evaluated by orthopedics as well as vascular surgery with concerns of carotid stenosis as well as cervical stenosis the CT imaging. Orthopedics recommending conservative management with no plans of surgical intervention at this time. Per vascular notes, carotid Dopplers reviewed and will continue with medical management with no plans of intervention at this time. Patient is afebrile with no reports of chest pain or shortness of breath. Patient reports is tolerating diet and encouraged to meals. Will discuss further with case management on Friday regarding discharge planning 07/06/2023 Patient is seen and evaluated in follow-up today currently sitting up in the [facility] and reports has been up and working with staff with a walker. Patient to be reevaluated by physical therapy on Friday with case management/social work following working on discharge planning to ECF. Plan is for [facility] and his primary Dr. Marroquin will take over care again on 07/07/2023. Patient is currently afebrile with no reported chest pain or shortness of breath. Patient tolerating diet and recommending supplements between meals. Patient was evaluated by neurology and vascular surgery with no plans for intervention recommending outpatient follow-up and continued rehab for strength and mobility. Review of systems: Constitutional: No reports of fatigue, fever, or chills Cardiovascular: No reports of chest pain or palpitations Respiratory: No reports of shortness of breath or cough GI: No reports of nausea, vomiting, or diarrhea : No reports of dysuria or retention Neurovascular: reports of generalized weakness and difficulty with ambulation All medications have been reviewed Physical exam: Gen: This is a 87-year-old male who is awake, thin built, elderly appearing, alert and oriented x 2-3, well-developed HEENT: Head is atraumatic, normocephalic. Pupils equal, round. Sclerae is anicteric. NECK: Supple. No JVD. No lymphadenopathy. No thyromegaly. LUNGS: Diminished breath sounds bilaterally otherwise clear to auscultation. No wheezes or rhonchi. No intercostal retractions. HEART: S1, S2 are muffled ABDOMEN: Soft. Bowel sounds are present. No masses. No tenderness. EXTREMITIES: No pedal edema. No calf tenderness. NEUROLOGICAL: Patient is awake, alert and oriented x3. Cranial nerves 2 through 12 are grossly intact. Gait is slow and shuffled diffusely weak Assessment: Near syncope, reported increasing weakness over the last 3-4 months, greatest noted in left lower extremity. Cervical stenosis, noted on imaging with no plans of surgical intervention, conservative management Acute hypoxic respiratory failure, resolved Hypertension Osteoarthritis Gait dysfunction, uses a walker Medical debility Chronic CHF, systolic dysfunction CAD PPM Diabetes mellitus, type II, [id number] History of prostate surgery Former nicotine dependence Hypokalemia, replaced Hypomagnesemia, supplemented Obesity, BMI 30 GI prophylaxis DVT prophylaxis Full code Plan: Patient is being closely monitored with neurology following and has been evaluat ed by orthopedics and vascular surgery with no plans of surgical intervention at this time. Patient was evaluated by consultations with no plans of immediate surgical intervention recommending conservative management and outpatient follow-up. Recommend PT/OT therapy daily as patient has been having progressive weakness and will require ECF on discharge Case management/social work following working on discharge planning which will be arranged on Friday Encouraged oral intake Continue monitoring Accu-Cheks before meals and at bedtime will use sliding scale as needed Due to multiple complex medical issues, prognosis is guarded discharge planning to ECF in the next 24 hours. Possibly Friday The impression and plan of care has been dictated by Nedra Cifuentes, Nurse Practitioner as directed. Dr. Vern MD I have performed a history and examination and MDM of this patient, discussed the same with the dictator, and agree with the dictator's assessment and plan as written ,documented as a scribe. Based on total visit time, I have performed more than 50% of the visit. Objective - Vital Signs Vital signs: Vital Signs Temp 98.5 F 07/06/23 06:56 Pulse 58 L 07/06/23 06:56 Resp 20 07/06/23 06:56 BP 157/69 07/06/23 06:56 Pulse Ox 94 L 07/06/23 06:56 FiO2 Intake & Output 07/05/23 07/06/23 07/06/23 18:59 06:59 18:59 Output Total 6 Balance -6 Weight 87.997 kg Output: Urine 2 Stool 4 Other: Voiding Method Urinal Diaper # Voids 6 3 # Bowel Movements 3 - Labs CBC & Chem 7: 07/05/23 05:48 07/05/23 05:48 Labs: Abnormal Lab Results - Last 24 Hours (Table) 07/05/23 07/05/23 07/05/23 Range/Units 05:48 11:04 16:19 BUN/Creatinine Ratio 21.88 H (12.00-20.00) Ratio Glucose 140 H (70-110) mg/dL POC Glucose (mg/dL) 235 H 192 H (70-110) mg/dL 07/06/23 Range/Units 06:31 BUN/Creatinine Ratio (12.00-20.00) Ratio Glucose (70-110) mg/dL POC Glucose (mg/dL) 121 H (70-110) mg/dL
[2023-07-06 16:30] LABS: Glucose,Whole Blood 177 mg/dL (70-110)
[2023-07-06 20:08] LABS: Glucose,Whole Blood 202 mg/dL (70-110)
[2023-07-07 02:51] VITALS: RESP 17
[2023-07-07 06:04] LABS: Glucose,Whole Blood 164 mg/dL (70-110)
--- NOTE | 2023-07-07 11:11 | P.DS ---
Providers Date of admission: 07/07/23 09:56 Expected date of discharge: 07/07/23 Attending physician: Haris Marroquin MD Consults: 07/02/23 09:36 Consult Physician Routine Consulting Provider: Angelica Stafford Consult Reason/Comments: near syncope,increased weakness, greatest noted LLE Do you want consulting provider notified?: Yes 07/04/23 13:19 Consult Physician Routine Consulting Provider: Cheryl Ramos Consult Reason/Comments: Cervical spinal stenosis Do you want consulting provider notified?: Yes 07/04/23 21:48 Consult Physician Routine Consulting Provider: Kathya Carcamo Consult Reason/Comments: Left ICA stenosis Do you want consulting provider notified?: Yes, Notify in am Primary care physician: Haris Marroquin MD Hospital Course: Final Diagnoses: Near syncope, reported increasing weakness over the last 3-4 months, greatest noted in left lower extremity. Suspect deconditioning from recent hospitalizations, cervical spondylosis, peripheral neuropathy as per neurology workup. Cervical stenosis, degenerative cervical disc .CT of the cervical spine dated 07/04/2023 reveals no evidence of fracture. Severe multilevel degenerative disc disease and grade 1 anterolisthesis of C3 on C4 and C5 and C6. There is moderate to severe spinal canal stenosis at C3-C4 and C4-C5. Evaluated by orthopedic spine, conservative management recommended. Nonhemodynamically severe carotid stenosis, as per vascular surgery evaluation, recommending medical management. Acute hypoxic respiratory failure, resolved Hypertension Osteoarthritis Gait dysfunction, uses a walker Medical debility Chronic CHF, systolic dysfunction CAD PPM Diabetes mellitus, hemoglobin A1c 6.6 History of prostate surgery Former nicotine dependence Hypokalemia, supplemented Hypomagnesemia, supplemented Obesity, BMI 30 Hospital course:This is a pleasant 87-year-old gentleman with past medical history significant for CAD, diabetes mellitus, hypertension, hyperlipidemia, osteoarthritis, permanent pacemaker, prostate surgery, former nicotine dependence, gait dysfunction, uses a walker, and multiple other medical issues presented to the ER with complaints of progressive weakness. at bedside states that since this past February patient started having worsening function, difficulty getting out of bed and supporting his own weight. She also states patient was admitted to [facility] last year for bleeding and diverticulitis. Apparently yesterday patient had an episode of going to the bathroom began to feel extremely weak and attempted to lower himself to the ground-witnessed by his . Denies syncope, denies head trauma, denies trauma. Denies rectal bleeding/dark or black stools, denies pain. Denies recent illness. Denies nausea vomiting or diarrhea. Denies abdominal pain. Blood sugars controlled. Denies weight loss. denies lightheadedness dizziness or focal deficits. reports patient stopped taking his Lasix a couple days ago and she notices levothyroxine medication was missing off the list he gave. Denies chills, coldness or fatigue. ProBNP 571 .denies chest pain palpitations or shortness of breath. Denies cough or congestion. currently requiring 2 L nasal cannula to maintain O2 sats in the 90s. Procalcitonin 0.05 hypertensive. Magnesium 1.7, supplemented. 07/03/2023 reports he did not sleep well denies chest pain, palpitations or shortness of breath. Maintaining O2 sats in the 90s on room air. Chest x-ray reported nonacute. TSH 4.04, hemoglobin A1c 6.6. Blood sugars ranging from 1 teens up to low 200s. afebrile, procalcitonin normal, 0.05. Reports dizziness upon standing. Orthostatic vital signs ordered. Neurology consult in place, recommendations pending. Evaluated by PT, recommending subacute rehab at discharge. Evaluated by neurology, orthopedic spine surgery and vascular surgery, neurowork-up completed. Brain CT reported nonacute .vitamin B12 562, folate 16.8 .CT of the cervical spine chest reported no cervical spine fracture. Large severe multilevel degenerative disc disease. Grade 1 anterolisthesis of C3 on C4 and C5 on C6. Carotid Doppler revealed tortuous left carotid system limiting the evaluation. The elevated velocities could reflect turbulent flow versus moderate 50 to 69% stenosis in both the left common and left ICA. Antegrade flow in both vertebral arteries.No surgical intervention -conservative/medical treatment recommended per vascular and an orthopedic surgery at this time. Patient sitting up in chair, denies any new symptoms denies neck pain at this time. Patient has been cleared by both vascular and orthopedic spine for discharge. Patient will be discharged to subacute rehab today in a stable condition with guarded prognosis pending final DC recommendations and clearance per neurology. The impression and plan of care has been dictated as directed. : I performed a history and examination of this patient, discussed the same with the dictator. I agree with the dictator's note ,documented as a scribe. Any additional findings or plans will be noted. Patient Condition at Discharge: Stable Plan - Discharge Summary Discharge Rx Participant: No New Discharge Prescriptions: New Acetaminophen Tab [Tylenol] 650 mg PO Q6HR PRN tab PRN Reason: Fever And/ Or Pain [id number] [Excedrin] 2 each PO Q6HR PRN tab PRN Reason: Headache INSULIN LISPRO (HumaLOG) [humaLOG] 0 unit SQ ACHS #10 ml Potassium Chloride ER [K-Dur 20] 20 meq PO DAILY tab Pantoprazole [Protonix] 40 mg PO AC-BRKFST tab Continue Nitroglycerin Sl Tabs [Nitrostat] 0.4 mg SUBLINGUAL Q5M PRN PRN Reason: Chest Pain Ascorbic Acid [Vitamin C] 500 mg PO DAILY@1200 Aspirin 81 mg PO DAILY lisinopriL [Zestril] 20 mg PO HS Glimepiride [Amaryl] 2 mg PO AC-BRKFST metFORMIN HCL 500 mg PO BID carvediloL [Coreg] 12.5 mg PO BID Cholecalciferol (Vitamin D3) [Vitamin D3 (3000 Iu)] 75 mcg PO DAILY@1200 Tamsulosin HCl [Flomax] 0.4 mg PO DAILY@1200 Rosuvastatin [Crestor] 10 mg PO HS Furosemide [Lasix] 20 mg PO DAILY amLODIPine [Norvasc] 5 mg PO DAILY Levothyroxine Sodium [Synthroid] 25 mcg PO DAILY Discharge Medication List Ascorbic Acid [Vitamin C] 500 mg PO DAILY@1200 07/01/23 [History] Aspirin 81 mg PO DAILY 07/01/23 [History] Cholecalciferol (Vitamin D3) [Vitamin D3 (3000 Iu)] 75 mcg PO DAILY@1200 07/01/23 [History] Furosemide [Lasix] 20 mg PO DAILY 07/01/23 [History] Glimepiride [Amaryl] 2 mg PO AC-BRKFST 07/01/23 [History] Levothyroxine Sodium [Synthroid] 25 mcg PO DAILY 07/01/23 [History] Nitroglycerin Sl Tabs [Nitrostat] 0.4 mg SUBLINGUAL Q5M PRN 07/01/23 [History] Rosuvastatin [Crestor] 10 mg PO HS 07/01/23 [History] Tamsulosin HCl [Flomax] 0.4 mg PO DAILY@1200 07/01/23 [History] amLODIPine [Norvasc] 5 mg PO DAILY 07/01/23 [History] carvediloL [Coreg] 12.5 mg PO BID 07/01/23 [History] lisinopriL [Zestril] 20 mg PO HS 07/01/23 [History] metFORMIN HCL 500 mg PO BID 07/01/23 [History] Acetaminophen Tab [Tylenol] 650 mg PO Q6HR PRN tab 07/07/23 [Rx] [id number] [Excedrin] 2 each PO Q6HR PRN tab 07/07/23 [Rx] INSULIN LISPRO (HumaLOG) [humaLOG] 0 unit SQ ACHS #10 ml 07/07/23 [Rx] Pantoprazole [Protonix] 40 mg PO AC-BRKFST tab 07/07/23 [Rx] Potassium Chloride ER [K-Dur 20] 20 meq PO DAILY tab 07/07/23 [Rx] Follow up Appointment(s)/Referral(s): Haris Marroquin MD [Primary Care Provider] - 1 Week (After discharge from subacute rehab.) Angelica Stafford MD [STAFF PHYSICIAN] - 2 Weeks Activity/Diet/Wound Care/Special Instructions: Follow up outpatient with Neurology for RICHARD scan [facility] subacute rehab CBC, BMP in 3 days
[2023-07-07 11:33] LABS: Glucose,Whole Blood 169 mg/dL (70-110)
[2023-07-07 14:26] VITALS: BP 128/68; PULSE 70; TEMP 97.9
== END 2023-07-07 15:18 | DRG 189 ==
LOC: EC 12:11 → 5NMEDONC 15:06 → 4SSUR 15:35 → OBSVTOIN 07-07 09:56
PROVIDERS: ADMIT Family Medicine; ATTEND Family Medicine
DX: J96.01 Acute respiratory failure with hypoxia (principal); I50.20 Unspecified systolic (congestive) heart failure; I65.22 Occlusion and stenosis of left carotid artery; M50.31 Other cervical disc degeneration, high cervical region; M48.02 Spinal stenosis, cervical region; M50.321 Other cervical disc degeneration at C4-C5 level; E66.9 Obesity, unspecified; E83.42 Hypomagnesemia; E78.5 Hyperlipidemia, unspecified; E87.6 Hypokalemia; R53.81 Other malaise; M19.90 Unspecified osteoarthritis, unspecified site; R26.9 Unspecified abnormalities of gait and mobility; Z74.01 Bed confinement status; R29.6 Repeated falls; I11.0 Hypertensive heart disease with heart failure; I25.10 Atherosclerotic heart disease of native coronary artery without angina pectoris; M43.12 Spondylolisthesis, cervical region; M47.812 Spondylosis without myelopathy or radiculopathy, cervical region; Z68.30 Body mass index [BMI] 30.0-30.9, adult; Z79.82 Long term (current) use of aspirin; Z79.84 Long term (current) use of oral hypoglycemic drugs; Z79.890 Hormone replacement therapy; Z79.899 Other long term (current) drug therapy; Z87.891 Personal history of nicotine dependence; Z91.81 History of falling; Z28.310 Unvaccinated for COVID-19; Z28.21 Immunization not carried out because of patient refusal; Z71.3 Dietary counseling and surveillance; Z95.5 Presence of coronary angioplasty implant and graft; Z95.0 Presence of cardiac pacemaker; Z87.19 Personal history of other diseases of the digestive system
CPT/HCPCS: 36415; 70450; 71045; 72125; 80048; 82607; 82746; 83036; 83735; 83880; 83921; 84145; 84207; 84443; 85025; 93005; 93880; 99285